=== PATIENT | male | born 1935 | race Hispanic/Latino ===

== ENCOUNTER 2017-02-24 18:31 | Emergency (ER) | payer MEDICARE ==
[2017-02-24 18:32] VITALS: BMI 33.9
[2017-02-24 18:53] VITALS: BP 161/92; PULSE 112; RESP 21; TEMP 99.2; O2SAT 92
--- NOTE | 2017-02-24 19:05 | ED PDOC ---
Arrival/HPI - General Chief Complaint: Male Genitourinary Time Seen by Provider: 02/24/17 18:32 Historian: Patient, Spouse - History of Present Illness Time/Duration: Prior to Arrival Symptom Onset: Gradual Symptom Course: Unchanged Severity Level: Moderate Associated Symptoms (Text): 02/24/17 19:02 Patient had a bronchoscopy 2 days ago. Post anesthesia, was unable to urinate. A Bhatia catheter was placed. He has an appointment with the urologist in 2 days. He states that the Bhatia catheter is not making urine this afternoon. He did empty the bag earlier today. He noticed some blood, but no clots. He is on Coumadin. No abdominal pain nausea or vomiting. No fever or chills. Past Medical History - Cardiac Hx Angina: Yes Hx Congestive Heart Failure: Yes Hx Hypertension: Yes - Pulmonary Hx Chronic Obstructive Pulmonary Disease (COPD): Yes - Neurological Hx Neurological Disorder: No - HEENT Other/Comment: HEARING AIDS - Renal Hx Renal Disorder: No - Endocrine/Metabolic Hx Endocrine Disorders: No - Hematological/Oncological Hx Blood Disorders: No Hx Blood Transfusions: No Hx Blood Transfusion Reaction: No - Integumentary Hx Dermatological Disorder: No - Musculoskeletal/Rheumatological Hx Arthritis: Yes - Gastrointestinal Hx Gastrointestinal Disorders: No - Genitourinary/Gynecological Other/Comment: URINARY RETENTION - Psychiatric Hx Psychophysiologic Disorder: No Hx Substance Use: No - Surgical History Other/Comment: LUNG BX - Anesthesia Hx Anesthesia Reactions: No Hx Malignant Hyperthermia: No Family/Social History - Physician Review Nursing Documentation Reviewed: Yes Family/Social History: Unknown Family HX Smoking Status: Former Smoker (Quit smoking 40 years ago) Hx Alcohol Use: No Hx Substance Use: No Allergies/Home Meds Allergies/Adverse Reactions: Allergies No Known Allergies Allergy (Verified 02/24/17 18:42) Home Medications: Home Meds Medication Instructions Recorded Confirmed Amlodipine Besylate 10 mg PO DAILY 01/27/13 02/24/17 Beclomethasone Dipropionate [Qvar] 80 mcg PO BID 01/27/13 02/24/17 Enalapril Maleate [Enalapril] 20 mg PO BID 01/27/13 02/24/17 Folic Acid 1 mg PO DAILY 01/27/13 02/24/17 Furosemide 40 mg PO DAILY 01/27/13 02/24/17 Levalbuterol Tartrate [Xopenex Hfa] 15 gra INH TID 01/27/13 02/24/17 Nebivolol Hydrochloride [Bystolic] 5 mg PO DAILY 01/27/13 02/24/17 Rosuvastatin Calcium [Crestor] 10 mg PO DAILY 01/27/13 02/24/17 Tiotropium [place] Inhaler 1 cap NEB DAILY 01/27/13 02/24/17 [Spiriva Inhalation Handihaler Device] Warfarin Sodium [Warfarin] 10 mg PO DAILY 01/27/13 02/24/17 Amiodarone Hydrochloride 200 mg PO DAILY 02/24/17 02/24/17 [Cordarone] Tamsulosin [Flomax] 1 cap PO DAILY 02/24/17 02/24/17 Review of Systems - Physician Review All systems were reviewed & negative as marked: Yes - Review of Systems Constitutional: Fatigue. absent: Fevers Respiratory: SOB (Chronic shortness of breath no different from usual) Cardiovascular: absent: Chest Pain, Palpitations, Syncope Gastrointestinal: absent: Abdominal Pain, Nausea, Vomiting Neurological: absent: Headache, Dizziness Physical Exam Vital Signs Temp Pulse Resp BP Pulse Ox 02/24/17 18:48 99.2 F 112 H 21 161/92 H 92 L Temperature: Afebrile Blood Pressure: Hypertensive Pulse: Tachycardic Respiratory Rate: Normal Appearance: Positive for: Well-Appearing, Non-Toxic, Comfortable, Other ( Chronically ill-appearing) Pain Distress: None Mental Status: Positive for: Alert and Oriented X 3 - Systems Exam Head: Present: Atraumatic, Normocephalic Neck: Present: Normal Range of Motion Respiratory/Chest: Present: Accessory Muscle Use, Wheezes, Decreased Breath Sounds, Rhonchi, Tachypneic. No: Rales, Retracting Cardiovascular: Present: Regular Rate and Rhythm, Normal S1, S2, Tachycardic. No: Murmurs Abdomen: Present: Normal Bowel Sounds, Other (Obese). No: Tenderness, Distention, Peritoneal Signs, Rebound, Guarding Genitourinary Male: Present: Normal External Genitalia, Circumcised Penis. No: Lesions, Penile Discharge Upper Extremity: Present: Normal Inspection. No: Cyanosis, Edema Lower Extremity: Present: Edema (Trace bilateral lower extremity edema) Neurological: Present: GCS=15, CN II-XII Intact, Speech Normal, Motor Func Grossly Intact Skin: Present: Warm, Dry, Normal Color. No: Rashes Psychiatric: Present: Alert, Oriented x 3, Normal Insight, Normal Concentration Medical Decision Making ED Course and Treatment: 02/24/17 20:10 BUN/creatinine are slightly elevated. Last BUN/creatinine are from 2010. 02/24/17 20:59 Bhatia catheter is draining well. reports that he has mild chronic renal failure. His INR is essentially normal, even though he is back on his Coumadin. He has an appointment with the urologist to have the Bhatia catheter removed in 2 days. Urine culture has been obtained. He will be treated for UTI and discharged home. Follow up in the ER as needed.. - Lab Interpretations Lab Results: 02/24/17 19:30 02/24/17 19:30 Lab Results 02/24/17 19:30: Sodium 134, Potassium 3.7, Chloride 99, Carbon Dioxide 26, Anion Gap 13, BUN 29 H, Creatinine 1.6 H, Est GFR ( Amer) 51, Est GFR ( Non-Af Amer) 42, Random Glucose 121 H, Calcium 9.3, Total Bilirubin 1.0, AST 26 , ALT 25, Alkaline Phosphatase 94, Total Protein 6.9, Albumin 3.9, Globulin 3.1 , Albumin/Globulin Ratio 1.3 02/24/17 19:30: PT 11.7, INR 1.08, APTT 33.7 H 02/24/17 19:30: WBC 11.9 H, RBC 4.11, Hgb 11.6 L, Hct 34.6 L, MCV 84.2, MCH 28.2 , MCHC 33.5, RDW 15.2 H, Plt Count 152, MPV 9.4, Gran % 81.1 H, Lymph % (Auto) 8.4 L, [place] % (Auto) 10.2 H, Eos % (Auto) 0.2 L, Baso % (Auto) 0.1, Gran # 9.62 H, Lymph # 1.0 L, [place] # 1.2 H, Eos # 0.0, Baso # 0.01 02/24/17 19:07: Urine Color Yellow, Urine Appearance Sl cloudy, Urine pH 6.0, Ur Specific [place] 1.020, Urine Protein 100 H, Urine Glucose (UA) Negative, Urine Ketones Negative, Urine Blood Large H, Urine Nitrate Negative, Urine Bilirubin Negative, Urine Urobilinogen 0.2, Ur Leukocyte Esterase Small H, Urine RBC Tntc, Urine WBC 2 - 5, Ur Epithelial Cells 3 - 4, Urine Bacteria Mod - Medication Orders Current Medication Orders: Discontinued Medications Ceftriaxone Sodium (Rocephin 1 Gram Ivpb) 1 gm in 100 mls @ 200 mls/hr IVPB STAT STA PRN Reason: Protocol Stop: 02/24/17 21:31 Last Admin: 02/24/17 21:08 Dose: 200 mls/hr Disposition/Present on Arrival - Present on Arrival Any Indicators Present on Arrival: No History of DVT/PE: No History of Uncontrolled Diabetes: No Urinary Catheter: No History of Decub. Ulcer: No History Surgical Site Infection Following: None - Disposition Have Diagnosis and Disposition been Completed?: Yes Diagnosis: Urinary retention, Urinary tract infection Disposition: HOME/ ROUTINE Disposition Time: 21:01 Patient Plan: Discharge Condition: IMPROVED Discharge Instructions (ExitCare): Urinary Retention in Men (ED), Urinary Tract Infection in Men (ED) Additional Instructions: Follow-up with PMD and neurologist. Follow up in ER as needed. Prescriptions: Sulfamethoxazole/Trimethoprim [Bactrim DS 800 mg-160 mg] 1 tab PO BID #14 tab
[2017-02-24 19:42] LABS: ADD MANUAL DIFF? NO
[2017-02-24 19:58] LABS: BASO # 0.01 K/mm3 (0.0-2.0); BASO % 0.1 % (0.0-3.0); EOS % 0.2 % (1.5-5.0); GRAN # 9.62 (1.4-6.5); GRAN % 81.1 % (50.0-68.0); HEMATOCRIT 34.6 % (42.0-52.0); LYMPH % 8.4 % (22.0-35.0); MEAN CELL VOLUME 84.2 fL (80.0-105.0); MEAN CORPUSCULAR HEMOGLOBIN 28.2 pg (25.0-35.0); MEAN CORPUSCULAR HGB CONC 33.5 g/dl (31.0-37.0); MEAN PLATELET VOLUME 9.4 fl (7.0-11.0); MONO # 1.2 (0.1-0.6); MONO % 10.2 % (1.0-6.0); PLATELET COUNT 152 10^3/uL (120.0-450.0); RED CELL DISTRIBUTION WIDTH 15.2 % (11.5-14.5); WHITE BLOOD COUNT 11.9 10^3/ul (4.5-11.0)
[2017-02-24 20:03] LABS: ALB/GLOB RATIO 1.3 (1.1-1.8); CALCIUM 9.3 mg/dL (8.4-10.5); POTASSIUM 3.7 mmol/L (3.6-5.0); TOTAL PROTEIN 6.9 g/dL (5.8-8.3)
[2017-02-24 20:04] LABS: INR 1.08 (0.93-1.08); PARTIAL THROMBOPLASTIN TIME 33.7 Seconds (23.7-30.8)
[2017-02-24 20:10] LABS: URINE BILIRUBIN NEGATIVE (NEGATIVE); URINE BLOOD LARGE (NEGATIVE); URINE GLUCOSE (UA) NEGATIVE (NEGATIVE); URINE KETONE NEGATIVE (NEGATIVE); URINE LEUKOCYTE ESTERASE SMALL Leu/uL (NEGATIVE); URINE PROTEIN 100 mg/dL (<30 mg/dL); URINE UROBILINOGEN 0.2 E.U./dL (<1 E.U./dL)
[2017-02-24 20:46] LABS: URINE APPEARANCE SL CLOUDY (CLEAR); URINE COLOR YELLOW (YELLOW)
[2017-02-24 20:47] LABS: URINE BACTERIA MOD (NEG); URINE RBC TNTC /hpf (0-2)
[2017-02-24] MEDS ORDERED: cefTRIAXone 1 gm 1 GM/100 ML BAG IVPB STA (21:02)
== END 2017-02-24 21:35 | disposition home or self-care (01) ==
LOC: ED 18:31
DX: R33.9 Retention of urine, unspecified (principal); N39.0 Urinary tract infection, site not specified; Z87.891 Personal history of nicotine dependence; I10 Essential (primary) hypertension; Z79.01 Long term (current) use of anticoagulants
CPT/HCPCS: 80053; 81001; 85025; 85610; 85730; 87086; 96365; 99284; J0696

== ENCOUNTER 2018-10-17 08:12 | Emergency (ER) | payer MEDICARE ==
[2018-10-17 08:23] VITALS: BMI 39.4
[2018-10-17 08:27] VITALS: TEMP 98.4
[2018-10-17 08:48] LABS: BASO # 0.01 K/mm3 (0.0-2.0); BASO % 0.1 % (0.0-3.0); EOS # 0.1 (0.0-0.7); EOS % 0.5 % (1.5-5.0); HEMOGLOBIN 12.4 g/dL (14.0-18.0); LYMPH % 8.4 % (22.0-35.0); MEAN CELL VOLUME 85.7 fl (80.0-105.0); MEAN CORPUSCULAR HEMOGLOBIN 28.1 pg (25.0-35.0); MEAN CORPUSCULAR HGB CONC 32.7 g/dl (31.0-37.0); MEAN PLATELET VOLUME 9.3 fl (7.0-11.0); MONO # 0.8 (0.1-0.6); MONO % 6.7 % (1.0-6.0); RBC 4.42 10^6/uL (3.5-6.1); RED CELL DISTRIBUTION WIDTH 14.7 % (11.5-14.5); WHITE BLOOD COUNT 12.2 10^3/uL (4.5-11.0)
--- NOTE | 2018-10-17 08:53 | ED PDOC ---
Arrival/HPI - General Chief Complaint: Trauma Historian: Patient, Spouse - History of Present Illness Narrative History of Present Illness (Text): 10/17/18 08:50 83 year old male, whose past medical history includes angina, A-fib, CHF, hypertension, COPD, pre-diabetes, and arthritis, who presents to the emergency department complaining of laceration to the back of the head and right elbow s/p fall earlier today. Patient says he has a chronic problem with his wrist and he is often unable to hold on to anything. Today he reports when he was walking down the stairs, he was unable to hold on to the railing, fell, and hit the back of his head. He notes associated laceration to the back of his head and to his right elbow. Patient states he walks with a cane at baseline and experiences chronic leg swelling. He denies loss of consciousness, dizziness, and lightheadedness before the fall. He also denies fevers, chills, headache, dizziness, chest pain, shortness of breath, dyspnea on exertion, cough, abdominal pain, nausea, vomiting, diarrhea, back pain, neck pain, or any other complaint. PMD: Dr. Hughes Biomedical Instrument Technician: Dr. Sloan Time/Duration: Prior to Arrival Symptom Course: Unchanged Activities at Onset: Light Context: Home Past Medical History - Provider Review Nursing Documentation Reviewed: Yes - Cardiac Hx Angina: Yes Hx Atrial Fibrillation: Yes Hx Congestive Heart Failure: Yes Hx Hypertension: Yes - Pulmonary Hx Chronic Obstructive Pulmonary Disease (COPD): Yes - Neurological Hx Neurological Disorder: No - HEENT Hx HEENT Disorder: Yes Hx Deafness: Yes Other/Comment: HEARING AIDS - Renal Hx Renal Disorder: No - Endocrine/Metabolic Hx Endocrine Disorders: Yes Hx Diabetes Mellitus Type 2: (prediabetic) - Hematological/Oncological Hx Blood Disorders: No Hx Blood Transfusions: No Hx Blood Transfusion Reaction: No - Integumentary Hx Dermatological Disorder: No - Musculoskeletal/Rheumatological Hx Arthritis: Yes - Gastrointestinal Hx Gastrointestinal Disorders: No - Genitourinary/Gynecological Other/Comment: URINARY RETENTION - Psychiatric Hx Psychophysiologic Disorder: No Hx Substance Use: No - Surgical History Hx Tonsillectomy: Yes Other/Comment: LUNG BX - Anesthesia Hx Anesthesia Reactions: No Hx Malignant Hyperthermia: No Family/Social History - Physician Review Nursing Documentation Reviewed: Yes Family/Social History: No Known Family HX Smoking Status: Former Smoker Hx Alcohol Use: No Hx Substance Use: No Allergies/Home Meds Allergies/Adverse Reactions: Allergies No Known Allergies Allergy (Verified 10/17/18 08:27) Home Medications: Home Meds Medication Instructions Recorded Confirmed Rosuvastatin Calcium [Crestor] 10 mg PO DAILY 01/27/13 10/17/18 Tiotropium [place] Inhaler 1 cap NEB DAILY 01/27/13 10/17/18 [Spiriva Inhalation Handihaler Device] Tamsulosin [Flomax] 1 cap PO DAILY 02/24/17 10/17/18 Beclomethasone Dipropionate [Qvar 0.08 mg IH BID 10/17/18 10/17/18 80 mcg] Folic Acid 1 mg PO DAILY 10/17/18 10/17/18 Furosemide [Lasix] 40 mg PO DAILY 10/17/18 10/17/18 Levalbuterol Tartrate [Xopenex Hfa] 2 puff IH QID 10/17/18 10/17/18 Nebivolol [Bystolic] 5 mg PO BID 10/17/18 10/17/18 Roflumilast [Daliresp] 250 mcg PO DAILY 10/17/18 10/17/18 Warfarin [Coumadin] 5 mg PO BID 10/17/18 10/17/18 amLODIPine [Norvasc] 10 mg PO DAILY 10/17/18 10/17/18 Review of Systems - Physician Review All systems were reviewed & negative as marked: Yes - Review of Systems Constitutional: absent: Fevers Eyes: absent: Vision Changes Respiratory: absent: SOB, Cough Cardiovascular: Edema (bilateral leg swelling). absent: Chest Pain Gastrointestinal: absent: Abdominal Pain, Nausea, Vomiting Genitourinary Male: absent: Dysuria, Frequency Musculoskeletal: absent: Back Pain, Neck Pain Skin: Laceration (to occiput and right elbow) Neurological: absent: Headache, Dizziness Physical Exam Vital Signs Reviewed: Yes Vital Signs Temp Pulse Resp BP Pulse Ox 10/17/18 08:22 98.4 F 107 H 18 158/101 H 92 L Temperature: Afebrile Blood Pressure: Hypertensive Pulse: Tachycardic Respiratory Rate: Normal Appearance: Positive for: Well-Appearing, Non-Toxic, Comfortable, Other (obese man) Pain Distress: None Mental Status: Positive for: Alert and Oriented X 3 - Systems Exam Head: Present: Atraumatic, Normocephalic, Laceration (linear laceration on the occiput) Pupils: Present: PERRL Extroacular Muscles: Present: EOMI Conjunctiva: Present: Normal Mouth: Present: Moist Mucous Membranes. No: Normal Teeth (poor dentition) Neck: Present: Normal Range of Motion Respiratory/Chest: Present: Clear to Auscultation, Decreased Breath Sounds (due to body habitus). No: Respiratory Distress, Accessory Muscle Use Cardiovascular: Present: Normal S1, S2, Irregular Rhythm (irregulary irrregular rhythm). No: Regular Rate and Rhythm, Murmurs Abdomen: Present: Distention, Other (abdomen soft). No: Tenderness, Peritoneal Signs Back: Present: Normal Inspection Upper Extremity: Present: Normal Inspection. No: Cyanosis, Edema Lower Extremity: Present: Edema (+1 pitting edema bilaterally) Neurological: Present: GCS=15, CN II-XII Intact, Speech Normal Skin: Present: Warm, Dry, Normal Color, Abrasion (abrasion noted towards right upper extremity that extends from the elbow to the mid forearm with ecchymosis present). No: Rashes Psychiatric: Present: Alert, Oriented x 3, Normal Insight, Normal Concentration Medical Decision Making ED Course and Treatment: 10/17/18 08:49 Impression: 83 year old male who presents to the emergency department complaining of laceration to head and right arm. Differential Diagnosis included but are not limited to: Brain Bleed TIA Plan: -- CT of Cervical Spine w/o contrast -- CT of Head w/o contrast -- Labs -- EKG -- Chest X-ray -- Right Forearm X-ray -- Reassess and disposition Prior Visits: Notes and results from previous visits were reviewed. Progress Notes: - Lab Interpretations I have reviewed the lab results: Yes - RAD Interpretation Narrative RAD Interpretations (Text): 10/17/18 09:57 CT of cervical Spine reviewed by radiologist, shows: IMPRESSION: No acute fracture. Grade 1 anterolisthesis L3-4, likely degenerative. Straightening may indicate muscular spasm. Head CT reviewed by radiologist, shows: IMPRESSION: No intracranial mass, hemorrhage or evidence of acute infarct. Age related atrophy and chronic white matter ischemic change. 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 Follow-up advised Right Forearm X-ray reviewed by radiologist, shows: IMPRESSION: No acute fracture. Radiology Orders: 10/17/18 08:27 CERVICAL SPINE W/O CONTRAST [CT] Stat 10/17/18 08:28 HEAD W/O CONTRAST [CT] Stat CHEST PORTABLE [RAD] Stat 10/17/18 08:46 FOREARM RIGHT [RAD] Stat Customer Complaint Service Supervisor: Radiologist - EKG Interpretation EKG Interpretation (Text): 10/17/18 09:19 EKG reviewed by me, shows: Irregularly irregular at 105 with RVR, intermittent PVCs, and normal QT intervals. Interpreted by ED Physician: Yes Type: 12 lead EKG - Scribe Statement The provider has reviewed the documentation as recorded by the Scribe Viki Clark Provider Scribe Attestation: All medical record entries made by the Scribe were at my direction and personally dictated by me. I have reviewed the chart and agree that the record accurately reflects my personal performance of the history, physical exam, medical decision making, and the department course for this patient. I have also personally directed, reviewed, and agree with the discharge instructions and disposition. Disposition/Present on Arrival - Present on Arrival Any Indicators Present on Arrival: No History of DVT/PE: No History of Uncontrolled Diabetes: No Urinary Catheter: No History of Decub. Ulcer: No History Surgical Site Infection Following: None - Disposition Have Diagnosis and Disposition been Completed?: Yes Diagnosis: Fall, Forearm contusion, Scalp abrasion Disposition: HOME/ ROUTINE Disposition Time: 10:30 Patient Plan: Discharge Patient Problems: Current Active Problems Problem Status Onset Fall Acute Forearm contusion Acute Scalp abrasion Acute Condition: STABLE Discharge Instructions (ExitCare): Preventing Falls in the Older Adult, Contusion (DC), Preventing Falls, Skin Abrasions (DC) Print Language: DUTCH Additional Instructions: All medical record entries made by the Scribe were at my direction and personally dictated by me. I have reviewed the chart and agree that the record accurately reflects my personal performance of the history, physical exam, medical decision making, and the department course for this patient. I have also personally directed, reviewed, and agree with the discharge instructions and disposition. Please follow up with Dr. Choudhary in 2-3 days Please use ice packs every hour for 15 minutes on the hand. Please return to the Emergency Room if you see any blood, redness, warmth or rash form on your hand. Referrals: Vladimir Hughes MD [Primary Care Provider] - Follow up with primary Forms: [employer] (Niuean)
[2018-10-17 08:57] LABS: ALB/GLOB RATIO 1.1 (1.1-1.8); ALBUMIN 3.9 g/dL (3.0-4.8); ALT/SGPT 24 U/L (7-56); AST/SGOT 21 U/L (17-59); BLOOD UREA NITROGEN 31 mg/dL (7-21); CALCIUM 9.5 mg/dL (8.4-10.5); GFR NON-AFRICAN AMERICAN 49; INR 3.11; PARTIAL THROMBOPLASTIN TIME 53.7 Seconds (26.9-38.3); PROTHROMBIN TIME 35.1 SECONDS (9.4-12.5)
[2018-10-17 09:08] LABS: TROPONIN I < 0.01 ng/mL
--- NOTE | 2018-10-17 09:34 | CT ---
Date of service: 10/17/2018 PROCEDURE: CT HEAD WITHOUT CONTRAST. HISTORY: fall COMPARISON: None available. TECHNIQUE: Axial computed tomography images were obtained through the head/brain without intravenous contrast. Radiation dose: Total exam DLP = 856.13 mGy-cm. This CT exam was performed using one or more of the following dose reduction techniques: Automated exposure control, adjustment of the mA and/or kV according to patient size, and/or use of iterative reconstruction technique. FINDINGS: HEMORRHAGE: No intracranial hemorrhage BRAIN: No mass effect or edema. Mild diffuse age-appropriate cerebral atrophy. Moderate patchy and confluent periventricular and deep/subcortical white matter lucency consistent with microvascular white matter ischemic change. 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 No evidence of acute infarct. VENTRICLES: Unremarkable. No hydrocephalus. CALVARIUM: Unremarkable. PARANASAL SINUSES: Unremarkable as visualized. No significant inflammatory changes. MASTOID AIR CELLS: Unremarkable as visualized. No inflammatory changes. OTHER FINDINGS: None. IMPRESSION: No intracranial mass, hemorrhage or evidence of acute infarct. Age related atrophy and chronic white matter ischemic change. 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
--- NOTE | 2018-10-17 09:50 | CT ---
Date of service: 10/17/2018 PROCEDURE: CT Cervical Spine without contrast HISTORY: fall COMPARISON: None available. TECHNIQUE: Axial computed tomography images were obtained of the cervical spine without the use of intravenous contrast. Coronal and sagittal reformatted images were created and reviewed. Radiation dose: Total exam DLP = 902.68 mGy-cm. This CT exam was performed using one or more of the following dose reduction techniques: Automated exposure control, adjustment of the mA and/or kV according to patient size, and/or use of iterative reconstruction technique. FINDINGS: VERTEBRAE: The vertebral bodies are maintained in height. There is grade 1 anterolisthesis at C3-4, likely degenerative in origin. Normal alignment is maintained elsewhere. There is straightening of the normal lordotic curvature of the cervical spine indicating possible muscular spasm. The atlantoaxial articulation and odontoid process are intact. DISCS/SPINAL CANAL/NEURAL FORAMINA: There is loss in height of the C4-5, C5-6 and C6-7 intervertebral disc spaces consistent with degenerative disc disease. No significant central cervical spinal stenosis. There is [id number] unilateral right C4-5 and bilateral C5-6 neural foraminal stenosis PARASPINAL SOFT TISSUES: Unremarkable. OTHER FINDINGS: None. IMPRESSION: No acute fracture. Grade 1 anterolisthesis L3-4, likely degenerative. Straightening may indicate muscular spasm.
[2018-10-17 10:28] VITALS: O2SAT 97
--- NOTE | 2018-10-17 11:14 | RAD ---
PROCEDURE: Radiographs of the Right Forearm HISTORY: fall COMPARISON: None available. TECHNIQUE: Frontal and lateral views obtained. FINDINGS: BONES: No fracture or destructive lesion. JOINT SPACES: Unremarkable. OTHER FINDINGS: Vascular calcification noted in soft tissues. IMPRESSION: No acute fracture.
--- NOTE | 2018-10-17 11:16 | RAD ---
Date of service: 10/17/2018 HISTORY: fall COMPARISON: No prior. FINDINGS: LUNGS: Patchy opacity at left base silhouetting left hemidiaphragm. This may reflect a pneumonia. Follow-up advised no other abnormal pulmonary opacity elsewhere. PLEURA: No significant pleural effusion identified, no pneumothorax apparent. CARDIOVASCULAR: No aortic atherosclerotic calcification present. Normal cardiac size. No pulmonary vascular congestion. OSSEOUS STRUCTURES: No significant abnormalities. VISUALIZED UPPER ABDOMEN: Normal. OTHER FINDINGS: None. IMPRESSION: Possible left basilar infiltrate. Follow-up advised
[2018-10-17 12:19] VITALS: BP 144/88; PULSE 92; RESP 20
--- NOTE | 2018-10-17 16:26 | CARD ---
APPROVED REPORT Date of service: 10/17/2018 EKG Measurement Heart [id number] <Conclusion> Atrial fibrillation with rapid ventricular response with premature ventricular or aberrantly conducted complexes Nonspecific ST and T wave abnormality, probably digitalis effect Abnormal ECG
== END 2018-10-17 11:50 | disposition home or self-care (01) ==
LOC: ED 08:12
DX: S00.01XA Abrasion of scalp, initial encounter (principal); S50.11XA Contusion of right forearm, initial encounter; W19.XXXA Unspecified fall, initial encounter; R73.03 Prediabetes; I48.91 Unspecified atrial fibrillation; I50.9 Heart failure, unspecified; I10 Essential (primary) hypertension; J44.9 Chronic obstructive pulmonary disease, unspecified; Z87.891 Personal history of nicotine dependence; M19.90 Unspecified osteoarthritis, unspecified site

== ENCOUNTER 2018-12-09 10:28 | Inpatient (IN) | payer MEDICARE ==
[2018-12-09 10:39] VITALS: BMI 39.3
--- NOTE | 2018-12-09 10:48 | ED PDOC ---
Arrival/HPI - General Time Seen by Provider: 12/09/18 10:30 Historian: Patient - History of Present Illness Narrative History of Present Illness (Text): 12/09/18 11:27 83 y/o male with PMH of afib, CAD, COPD, DM, CHF, HTN presents to the ED c/o left hand/wrist swelling and erythema x 3 weeks. Pt is seen weekly by a visiting nurse associated with Dr. Hughes. Pt has similar redness and swelling to left elbow and left hand, that resolved without antibiotic treatment. Pt was advised to go to the ED if symptoms persisted in the left hand. Associated intermittent SOB, loss of appetite, and lightheadedness over the last few months. Denies fever, chills, chest pain, back pain, headache, vision changes, nausea, vomiting, diarrhea, or any other associated symptoms. Past Medical History - Cardiac Hx Angina: Yes Hx Atrial Fibrillation: Yes Hx Congestive Heart Failure: Yes Hx Hypertension: Yes - Pulmonary Hx Chronic Obstructive Pulmonary Disease (COPD): Yes - Neurological Hx Neurological Disorder: No - HEENT Hx HEENT Disorder: Yes Hx Deafness: Yes Other/Comment: HEARING AIDS - Renal Hx Renal Disorder: No - Endocrine/Metabolic Hx Endocrine Disorders: Yes Hx Diabetes Mellitus Type 2: (prediabetic) - Hematological/Oncological Hx Blood Disorders: No Hx Blood Transfusions: No Hx Blood Transfusion Reaction: No - Integumentary Hx Dermatological Disorder: No - Musculoskeletal/Rheumatological Hx Arthritis: Yes - Gastrointestinal Hx Gastrointestinal Disorders: No - Genitourinary/Gynecological Other/Comment: URINARY RETENTION - Psychiatric Hx Psychophysiologic Disorder: No Hx Substance Use: No - Surgical History Hx Tonsillectomy: Yes Other/Comment: LUNG BX - Anesthesia Hx Anesthesia Reactions: No Hx Malignant Hyperthermia: No Family/Social History Smoking Status: Former Smoker Hx Alcohol Use: No Hx Substance Use: No Allergies/Home Meds Allergies/Adverse Reactions: Allergies No Known Allergies Allergy (Verified 12/09/18 11:12) Home Medications: Home Meds Medication Instructions Recorded Confirmed Rosuvastatin Calcium [Crestor] 10 mg PO DAILY 01/27/13 12/09/18 Tiotropium [place] Inhaler 1 cap NEB DAILY 01/27/13 12/09/18 [Spiriva Inhalation Handihaler Device] Tamsulosin [Flomax] 1 cap PO DAILY 02/24/17 12/09/18 Beclomethasone Dipropionate [Qvar 0.08 mg IH BID 10/17/18 12/09/18 80 mcg] Folic Acid 1 mg PO DAILY 10/17/18 12/09/18 Furosemide [Lasix] 40 mg PO DAILY 10/17/18 12/09/18 Levalbuterol Tartrate [Xopenex Hfa] 2 puff IH QID 10/17/18 12/09/18 Nebivolol [Bystolic] 10 mg PO DAILY 10/17/18 12/09/18 Roflumilast [Daliresp] 250 mcg PO DAILY 10/17/18 12/09/18 Warfarin [Coumadin] 5 mg PO DAILY 10/17/18 12/09/18 Cyanocobalamin (Vitamin B-12) 1,000 mcg PO DAILY 12/09/18 12/09/18 [Vitamin B-12] Physical Exam Vital Signs Reviewed: Yes Temperature: Afebrile Blood Pressure: Hypertensive Pulse: Regular Respiratory Rate: Normal Appearance: Positive for: Well-Appearing, Non-Toxic, Comfortable Pain Distress: None Mental Status: Positive for: Alert and Oriented X 3 - Systems Exam Head: Present: Atraumatic, Normocephalic Pupils: Present: PERRL Extroacular Muscles: Present: EOMI Conjunctiva: Present: Normal Mouth: Present: Moist Mucous Membranes Neck: Present: Normal Range of Motion Respiratory/Chest: Present: Clear to Auscultation, Good Air Exchange. No: Respiratory Distress, Accessory Muscle Use Cardiovascular: Present: Regular Rate and Rhythm, Normal S1, S2. No: Murmurs Abdomen: No: Tenderness, Distention, Peritoneal Signs Back: Present: Normal Inspection. No: CVA Tenderness, Paraspinal Tenderness Upper Extremity: Present: Normal ROM, NORMAL PULSES, Tenderness (dorsum of left hand and wrist), Swelling (dorsum left hand), Neurovascularly Intact, Temperature Abnormalties (warmth to dorsum of left hand and wrist), Capillary Refill < 2s. No: Normal Inspection, Cyanosis, Edema Lower Extremity: Present: Normal Inspection. No: Edema Neurological: Present: GCS=15, CN II-XII Intact, Speech Normal Skin: Present: Warm, Dry, Normal Color. No: Rashes Psychiatric: Present: Alert, Oriented x 3, Normal Insight, Normal Concentration Medical Decision Making ED Course and Treatment: 12/09/18 11:26 Initial Plan: * CBC, CMP * Coags * ESR * EKG * CXR * Left Wrist XR 12/09/18 12:27 INR 8.8. No active bleeding, will continue to monitor. BNP elevated, will give home lasix dose. ESR elevated at 90 12/09/18 12:[address] Barajas who accepted patient for inpatient admission with diagnoses of cellulitis, elevated INR, and CHF. Pt updated with change in disposition. Resting comfortably in stretcher with stable vital signs at this time. - Lab Interpretations Lab Results: 12/09/18 11:30 12/09/18 11:30 Lab Results 12/09/18 11:30: PT 99.5 H, INR 8.81 H*, APTT 88.8 H 12/09/18 11:30: Sodium 142, Potassium 3.7, Chloride 109 H, Carbon Dioxide 25, Anion Gap 12, BUN 15, Creatinine 0.9, Est GFR ( Amer) > 60, Est GFR (Non- Af Amer) > 60, Random Glucose 114 H, Calcium 9.0, Total Bilirubin 0.6, AST 19, ALT 11, Alkaline Phosphatase 101, Troponin I Pending, NT-Pro-B Natriuret Pep 4930 H, Total Protein 6.5, Albumin 3.1, Globulin 3.3, Albumin/Globulin Ratio 0.9 L 12/09/18 11:30: WBC 9.3 D, RBC 4.09, Hgb 10.8 L, Hct 34.3 L, MCV 83.9, MCH 26.4, MCHC 31.5, RDW 16.7 H, Plt Count 271, MPV 9.3, Neut % (Auto) 85.5 H, Lymph % (Auto) 7.2 L, [place] % (Auto) 6.5 H, Eos % (Auto) 0.8 L, Baso % (Auto) 0.0, Lymph # (Auto) 0.7 L, [place] # (Auto) 0.6, Eos # (Auto) 0.1, Baso # (Auto) 0.00, Absolute Neuts (auto) 7.98 H, ESR Pending I have reviewed the lab results: Yes - RAD Interpretation Narrative RAD Interpretations (Text): 12/09/18 12:27 CXR: FINDINGS: LUNGS: No active pulmonary disease. PLEURA: Small left effusion CARDIOVASCULAR: No aortic atherosclerotic calcification present. Moderate cardiomegaly no pulmonary vascular congestion. OSSEOUS STRUCTURES: No significant abnormalities. VISUALIZED UPPER ABDOMEN: Normal. OTHER FINDINGS: None. IMPRESSION: No active disease. Small left effusion Left Wrist XR: FINDINGS: BONES: Normal. No fracture. JOINTS: Normal. No dislocation. SOFT TISSUES: Normal. OTHER FINDINGS: Vascular calcification IMPRESSION: Normal left wrist radiographs. 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
[2018-12-09 11:39] LABS: EOS # 0.1 (0.0-0.7); EOS % 0.8 % (1.5-5.0); HEMOGLOBIN 10.8 g/dL (14.0-18.0); LYMPH # 0.7 (1.2-3.4); LYMPH % 7.2 % (22.0-35.0); MEAN CELL VOLUME 83.9 fl (80.0-105.0); MEAN CORPUSCULAR HEMOGLOBIN 26.4 pg (25.0-35.0); MEAN CORPUSCULAR HGB CONC 31.5 g/dl (31.0-37.0); MEAN PLATELET VOLUME 9.3 fl (7.0-11.0); MONO # 0.6 (0.1-0.6); MONO % 6.5 % (1.0-6.0); RBC 4.09 10^6/uL (3.5-6.1); RED CELL DISTRIBUTION WIDTH 16.7 % (11.5-14.5); WHITE BLOOD COUNT 9.3 10^3/uL (4.5-11.0)
[2018-12-09 11:51] LABS: PARTIAL THROMBOPLASTIN TIME 88.8 Seconds (26.9-38.3)
[2018-12-09 12:14] LABS: ALB/GLOB RATIO 0.9 (1.1-1.8); ALBUMIN 3.1 g/dL (3.0-4.8); ALT/SGPT 11 U/L (7-56); AST/SGOT 19 U/L (17-59); B-TYPE NATRIURETIC PEPTIDE 4930 pg/mL (0-450); BLOOD UREA NITROGEN 15 mg/dL (7-21); GFR NON-AFRICAN AMERICAN > 60
[2018-12-09 12:17] LABS: INR 8.81; PROTHROMBIN TIME 99.5 SECONDS (9.4-12.5)
--- NOTE | 2018-12-09 12:26 | RAD ---
Date of service: 12/09/2018 HISTORY: sob COMPARISON: 10/17/2018 TECHNIQUE: 1 view obtained. FINDINGS: LUNGS: No active pulmonary disease. PLEURA: Small left effusion CARDIOVASCULAR: No aortic atherosclerotic calcification present. Moderate cardiomegaly no pulmonary vascular congestion. OSSEOUS STRUCTURES: No significant abnormalities. VISUALIZED UPPER ABDOMEN: Normal. OTHER FINDINGS: None. IMPRESSION: No active disease. Small left effusion
--- NOTE | 2018-12-09 12:28 | RAD ---
Date of service: 12/09/2018 PROCEDURE: Left Wrist Radiographs. HISTORY: cellulitis, swelling COMPARISON: None. FINDINGS: BONES: Normal. No fracture. JOINTS: Normal. No dislocation. SOFT TISSUES: Normal. OTHER FINDINGS: Vascular calcification IMPRESSION: Normal left wrist radiographs.
[2018-12-09] MEDS ORDERED: Vancomycin 1gm in NS 250ml 1 GM/250 ML BAG IVPB STA (12:53)
[2018-12-09 12:59] LABS: TROPONIN I 0.01 ng/mL
--- NOTE | 2018-12-09 13:45 | CP.PCM.HP ---
<Osmani Escobedo - Last Filed: 12/09/18 14:58> History of Present Illness - History of Present Illness History of Present Illness: Osmani Escobedo, PGY1 Hospital H&P This is an 83 year old male with PMH of afib on coumadin, CHF, pre-DM, COPD not on home O2, CAD and HTN presenting to the hospital for 3 week history of left hand swelling, redness, tenderness and warmth. Patient states he has similar intermittent symptoms in both wrists that extend into the arm but the left wrist complaints have worsened throughout the week. He has a home health nurse who works with Dr. Cortez that recommended hot and cold compresses with limited improvement in symptoms. He states symptoms worsen with use of walker and with use of rails when climbing up stairs. He denies any recent change in medication and has been on a stable dose of warfarin for years and denies recent change in diet. He denies history of gout, recent trauma, fevers, chest pain, new SOB, melanic stools, abdominal pain, diarrhea, constipation, urinary symptoms, numbness, tingling and chills. 12 point ROS noted here, otherwise unremarkable. PMD: Dr. Gaona Applications Instructor: Dr. Sloan PMH:afib on coumadin, CHF, pre-DM, COPD not on home O2, CAD and HTN SH: former smoker, quit 40 years with 30 pack year history. Quit drinking alcohol 25 years ago, denies drug use Sx: tonsillectomy many years ago FH: father had bladder cancer All: NKDA Meds: warfarin 5mg 5 days a week and 2.5mg two days a week, vitamin B12 and D, folic acid, lasix 40mg, crestor 10mg, flomax 0.4mg, bystolic 10mg, spiriva, duonebs, qvar Present on Admission - Present on Admission Any Indicators Present on Admission: No Past Patient History - Past Social History Smoking Status: Former Smoker - CARDIAC Hx Angina: Yes Hx Atrial Fibrillation: Yes Hx Congestive Heart Failure: Yes Hx Hypertension: Yes - PULMONARY Hx Chronic Obstructive Pulmonary Disease (COPD): Yes - NEUROLOGICAL Hx Neurological Disorder: No - HEENT Hx HEENT Problems: Yes Hx Deafness: Yes Other/Comment: HEARING AIDS - RENAL Hx Chronic Kidney Disease: No - ENDOCRINE/METABOLIC Hx Endocrine Disorders: Yes Hx Diabetes Mellitus Type 2: (prediabetic) - HEMATOLOGICAL/ONCOLOGICAL Hx Blood Disorders: No Hx Blood Transfusions: No Hx Blood Transfusion Reaction: No - INTEGUMENTARY Hx Dermatological Problems: No - MUSCULOSKELETAL/RHEUMATOLOGICAL Hx Arthritis: Yes - GASTROINTESTINAL Hx Gastrointestinal Disorders: No - GENITOURINARY/GYNECOLOGICAL Other/Comment: URINARY RETENTION - PSYCHIATRIC Hx Psychophysiologic Disorder: No Hx Substance Use: No - SURGICAL HISTORY Hx Tonsillectomy: Yes Other/Comment: LUNG BX - ANESTHESIA Hx Anesthesia Reactions: No Hx Malignant Hyperthermia: No Meds Allergies/Adverse Reactions: Allergies Allergy/AdvReac Type Severity Reaction Status Date / Time No Known Allergies Allergy Verified 12/09/18 11:12 Physical Exam - Constitutional Appears: No Acute Distress - Head Exam Head Exam: ATRAUMATIC, NORMAL INSPECTION - Eye Exam Eye Exam: EOMI Pupil Exam: PERRL - ENT Exam ENT Exam: Mucous Membranes Moist - Neck Exam Neck exam: Positive for: Normal Inspection - Respiratory Exam Respiratory Exam: Clear to Auscultation Bilateral. absent: Accessory Muscle Use, Wheezes, Respiratory Distress - Cardiovascular Exam Cardiovascular Exam: Irregular Rhythm, +S1, +S2. absent: Tachycardia - GI/Abdominal Exam GI & Abdominal Exam: Normal Bowel Sounds, Soft. absent: Firm, Guarding, Tenderness - Extremities Exam Extremities exam: Positive for: pedal pulses present. Negative for: calf tenderness Additional comments: LUE > RUE swelling, erythema, tenderness, warmth appreciation. No fluctuance/drainage/sharp demarcation appreciated LLE dry eczematic changes noted with swelling +2 LLE and +1 RLE. - Neurological Exam Neurological exam: Alert, CN II-XII Intact, Oriented x3 - Skin Skin Exam: Dry, Normal Color Results - Vital Signs Recent Vital Signs: Last Vital Signs Temp 97.8 F 12/09/18 10:29 Pulse 78 12/09/18 10:29 Resp 20 12/09/18 10:29 BP 164/80 H 12/09/18 12:40 Pulse Ox 92 L 12/09/18 10:29 - Labs Result Diagrams: 12/09/18 11:30 12/09/18 11:30 Labs: Laboratory Results - last 24 hr 12/09/18 12/09/18 12/09/18 11:30 11:30 11:30 WBC 9.3 D RBC 4.09 Hgb 10.8 L Hct 34.3 L MCV 83.9 MCH 26.4 MCHC 31.5 RDW 16.7 H Plt Count 271 MPV 9.3 Neut % (Auto) 85.5 H Lymph % (Auto) 7.2 L [place] % (Auto) 6.5 H Eos % (Auto) 0.8 L Baso % (Auto) 0.0 Lymph # (Auto) 0.7 L [place] # (Auto) 0.6 Eos # (Auto) 0.1 Baso # (Auto) 0.00 Absolute Neuts (auto) 7.98 H ESR 90 H PT 99.5 H INR 8.81 H* APTT 88.8 H Sodium 142 Potassium 3.7 Chloride 109 H Carbon Dioxide 25 Anion Gap 12 BUN 15 Creatinine 0.9 Est GFR ( Amer) > 60 Est GFR (Non-Af Amer) > 60 Random Glucose 114 H Calcium 9.0 Total Bilirubin 0.6 AST 19 ALT 11 Alkaline Phosphatase 101 Troponin I 0.01 NT-Pro-B Natriuret Pep 4930 H Total Protein 6.5 Albumin 3.1 Globulin 3.3 Albumin/Globulin Ratio 0.9 L Assessment & Plan - Assessment and Plan (Free Text) Assessment: This is an 83 year old male with PMH of afib on coumadin, CHF, pre-DM, COPD not on home O2, CAD and HTN presenting to the hospital for 3 week history of left hand swelling, redness, tenderness and warmth. Plan: LUE swelling -consider cellulitis vs trauma vs clot -upper and lower extremity doppler's pending -given one dose vancomycin in ED -ID on consult, Dr. Han -afebrile, no WBC -blood culture pending -PT eval -left hand xray unremarkable Supratherapeutic INR -holding warfarin -will give one dose of vitamin K -monitor INR History of afib -holding warfarin History of CHF -no echo on file -BNP elevated on admission -CXR shows no active disease -continue lasix 40mg History of COPD -not in active SOB, symptoms controlled -duonebs, pulmicort, brovana Pre-DM -monitor glucose, not currently on medication History of CAD -continue statin History of HTN -continue bystolic PPX -DVT ppx not indicated due supratherapeutic INR Patient seen and case discussed with attending, Shasta Arreola. <Christine Segura R - Last Filed: 12/10/18 08:03> Results - Vital Signs Recent Vital Signs: Last Vital Signs Temp 98.6 F 12/10/18 00:00 Pulse 85 12/10/18 06:00 Resp 18 12/10/18 00:00 BP 156/68 H 12/10/18 00:00 Pulse Ox 95 12/10/18 00:00 - Labs Result Diagrams: 12/10/18 06:00 12/10/18 06:00 Labs: Laboratory Results - last 24 hr 12/09/18 12/09/18 12/09/18 11:30 11:30 11:30 WBC 9.3 D RBC 4.09 Hgb 10.8 L Hct 34.3 L MCV 83.9 MCH 26.4 MCHC 31.5 RDW 16.7 H Plt Count 271 MPV 9.3 Neut % (Auto) 85.5 H Lymph % (Auto) 7.2 L [place] % (Auto) 6.5 H Eos % (Auto) 0.8 L Baso % (Auto) 0.0 Lymph # (Auto) 0.7 L [place] # (Auto) 0.6 Eos # (Auto) 0.1 Baso # (Auto) 0.00 Absolute Neuts (auto) 7.98 H ESR 90 H PT 99.5 H INR 8.81 H* APTT 88.8 H Sodium 142 Potassium 3.7 Chloride 109 H Carbon Dioxide 25 Anion Gap 12 BUN 15 Creatinine 0.9 Est GFR ( Amer) > 60 Est GFR (Non-Af Amer) > 60 Random Glucose 114 H Calcium 9.0 Phosphorus Magnesium Total Bilirubin 0.6 AST 19 ALT 11 Alkaline Phosphatase 101 Troponin I 0.01 NT-Pro-B Natriuret Pep 4930 H Total Protein 6.5 Albumin 3.1 Globulin 3.3 Albumin/Globulin Ratio 0.9 L Urine Color Urine Appearance Urine pH Ur Specific [place] Urine Protein Urine Glucose (UA) Urine Ketones Urine Blood Urine Nitrate Urine Bilirubin Urine Urobilinogen Ur Leukocyte Esterase Urine RBC Urine WBC Ur Epithelial Cells Urine Bacteria 12/09/18 12/10/18 12/10/18 16:59 06:00 06:00 WBC 6.9 D RBC 3.96 Hgb 10.2 L Hct 33.0 L MCV 83.3 MCH 25.8 MCHC 30.9 L RDW 16.8 H Plt Count 255 MPV 9.1 Neut % (Auto) 80.2 H Lymph % (Auto) 9.2 L [place] % (Auto) 9.6 H Eos % (Auto) 1.0 L Baso % (Auto) 0.0 Lymph # (Auto) 0.6 L [place] # (Auto) 0.7 H Eos # (Auto) 0.1 Baso # (Auto) 0.00 Absolute Neuts (auto) 5.51 ESR PT 19.5 H INR 1.73 APTT Sodium Potassium Chloride Carbon Dioxide Anion Gap BUN Creatinine Est GFR ( Amer) Est GFR (Non-Af Amer) Random Glucose Calcium Phosphorus Magnesium Total Bilirubin AST ALT Alkaline Phosphatase Troponin I NT-Pro-B Natriuret Pep Total Protein Albumin Globulin Albumin/Globulin Ratio Urine Color Yellow Urine Appearance Clear Urine pH 6.0 Ur Specific [place] 1.020 Urine Protein 30 H Urine Glucose (UA) Negative Urine Ketones Negative Urine Blood Large H Urine Nitrate Negative Urine Bilirubin Negative Urine Urobilinogen 0.2 Ur Leukocyte Esterase Negative Urine RBC Tntc H Urine WBC 0 - 2 Ur Epithelial Cells 0 - 2 Urine Bacteria Neg 12/10/18 06:00 WBC RBC Hgb Hct MCV MCH MCHC RDW Plt Count MPV Neut % (Auto) Lymph % (Auto) [place] % (Auto) Eos % (Auto) Baso % (Auto) Lymph # (Auto) [place] # (Auto) Eos # (Auto) Baso # (Auto) Absolute Neuts (auto) ESR PT INR APTT Sodium 143 Potassium 3.2 L Chloride 107 Carbon Dioxide 27 Anion Gap 12 BUN 15 Creatinine 1.0 Est GFR ( Amer) > 60 Est GFR (Non-Af Amer) > 60 Random Glucose 101 Calcium 9.0 Phosphorus 4.0 Magnesium 1.9 Total Bilirubin 0.8 AST 24 ALT 7 Alkaline Phosphatase 94 Troponin I NT-Pro-B Natriuret Pep Total Protein 6.7 Albumin 2.9 L Globulin 3.8 Albumin/Globulin Ratio 0.8 L Urine Color Urine Appearance Urine pH Ur Specific [place] Urine Protein Urine Glucose (UA) Urine Ketones Urine Blood Urine Nitrate Urine Bilirubin Urine Urobilinogen Ur Leukocyte Esterase Urine RBC Urine WBC Ur Epithelial Cells Urine Bacteria Attending/Attestation - Attestation I have personally seen and examined this patient.: Yes I have fully participated in the care of the patient.: Yes I have reviewed all pertinent clinical information: Yes Notes (Text): Patient seen and examined by me with resident at approximately 1:05PM on 12/09/18 in the emergency room. Case including HPI, physical exam, and assessment and plan discussed with resident. Agree with above with following additions/corrections. Patient is an 83-year-old male with past medical history significant for atrial fibrillation on Coumadin, chronic systolic CHF, prediabetes not on medications at home, COPD, coronary artery disease, hypertension, and hyperlipidemia that presented to the emergency room with left hand edema, erythema, and pain. Patient states that the left hand redness, swelling, pain, and warmth started on 12/02/2018. He states that it has not improved since then and has actually gotten worse. He states he has tried heat and ice without much relief. Patient states that he had the same sort of redness on his right arm and hand approximately a month ago. Patient states that is intermittent between the right and left. Patient states that he has been tested for gout in the past and was told he does not have that. Patient denies any trauma to the hand or bug bites. Patient states that he has been seen by the visiting nurse who discussed his hand with his primary care doctor. They only recommended heat and ice per patient. He states he has tried BenGay for pain. He denies any associated fevers. Patient states that he does use his hands a lot for gripping and clim monique up stairs at home and feels it may be associated to that. Patient states that he has also had a loss of appetite. Patient denies any nausea, vomiting, or abdominal pain. Patient states that he has chronic shortness of breath with ambulation secondary to COPD. Patient denies any chest pain or palpitations. No headaches or dizziness. No lightheadedness. No dysuria. No diarrhea or constipation. Patient denies any hematuria or bleeding from any site. 12 point review of systems reviewed by me. Please see above HPI, all other systems negative. Family history: Mother of natural causes. Father of bladder cancer. Physical exam: General: Awake and alert sitting up in bed in no acute distress. HEENT: Normocephalic, atraumatic. Extraocular muscles intact, pupils equal and reactive, no scleral icterus. Oropharynx is pink and moist. No pharyngeal erythema or exudate appreciated. Neck is supple. Hearing grossly intact. Ears and nose externally unremarkable. Cardiovascular: Irregularly irregular rhythm. No murmurs, rubs, or gallops appreciated Pulmonary: Normal respiratory effort. No rhonchi, rales, or wheezing appreciated. Gastrointestinal: Soft, nondistended. Nontender. Positive bowel sounds all 4 quadrants. No guarding. Musculoskeletal: Moves all extremities. No calf tenderness. Bilateral lower extremity pitting edema (chronic per patient). Left hand near index finger with erythema, warmth, and tenderness with palpation. Positive edema bilateral hands. Central nervous system: AAOx3. CN 2-12 grossly intact Dermatologic: Skin warm and dry. Left lower extremity with chronic venous stasis color changes. Assessment and plan: Patient is an 83-year-old male with past medical history significant for atrial fibrillation on Coumadin, chronic systolic CHF, predia betes not on medications at home, COPD, coronary artery disease, hypertension, and hyperlipidemia that presented to the emergency room with left hand edema, erythema, and pain. 1. Left hand cellulitis. Started on vancomycin. ID consulted, follow-up recommendations. Patient afebrile and leukocytosis. Left wrist x-ray per radiologist showed normal left wrist radiographs. Follow-up bilateral upper ex tremity venous Dopplers. 2. Supratherapeutic INR. INR 8.8. Urinalysis with blood. We will give vitamin K. Follow up repeat INR in a.m. We'll hold Coumadin for now. 3. Chronic atrial fibrillation. Coumadin held for now secondary to supratherapeutic INR. Continue home by systolic. 4. COPD. Not in acute exacerbation. Placed on Brovana and Pulmicort. Placed on nebulizer treatments as needed. 5. Chronic systolic CHF. Compensated. Continue home Lasix. Continue home bystolic. 6. Hypertension. Continue home bystolic. 7. Hyperlipidemia. Patient takes Crestor at home. Placed on Lipitor. 8. BPH. Continue Flomax. 9. DVT prophylaxis. Patient on Coumadin with supratherapeutic INR. 10. Patient is a full code Case was discussed in detail with the patient and patient's at bedside regarding current diagnosis and treatment plan. All questions answered.
[2018-12-09] MEDS ORDERED: Phytonadione 10 MG in Sodium Chloride 0.9% 50 ML IV ONE (14:54)
[2018-12-09 17:08] LABS: URINE BILIRUBIN NEGATIVE (NEGATIVE); URINE BLOOD LARGE (NEGATIVE); URINE GLUCOSE (UA) NEGATIVE (NEGATIVE); URINE LEUKOCYTE ESTERASE NEGATIVE Leu/uL (NEGATIVE); URINE PROTEIN 30 mg/dL (<30 mg/dL); URINE UROBILINOGEN 0.2 E.U./dL (<1 E.U./dL)
[2018-12-09 17:10] LABS: URINE COLOR YELLOW (YELLOW)
[2018-12-09 17:22] LABS: URINE APPEARANCE CLEAR (CLEAR); URINE BACTERIA NEG /hpf; URINE EPITHELIAL CELLS 0 - 2 /hpf (0-5); URINE RBC TNTC /hpf (0-2); URINE WBC 0 - 2 /hpf (0-6)
--- NOTE | 2018-12-09 17:22 | CARD ---
APPROVED REPORT Date of service: 12/09/2018 EKG Measurement Heart [id number] <Conclusion> Atrial fibrillation Incomplete left bundle branch block Nonspecific ST and T wave abnormality, probably digitalis effect Prolonged QT Abnormal ECG
[2018-12-09] MEDS ORDERED: Arformoterol 15 mcg/2 ml Inh Sol IH SCH (20:00)
--- NOTE | 2018-12-09 20:07 | US ---
HISTORY: Arm pain and swelling. Evaluate for deep venous thrombosis. PHYSICIAN(S): Marquise Wong MD. FINDINGS: The visualized internal jugular veins are sonographically normal and compressible. No evidence of obstruction or thrombus this is seen. The visualized segments of the subclavian veins are patent with normal waveforms. No sonographic evidence of obstruction or thrombosis is seen. The visualized deep venous systems of both upper extremities proximally are sonographically normal and compressible. IMPRESSION: 1. No sonographic evidence for deep venous thrombosis in the visualized segments of both upper strategies.
--- NOTE | 2018-12-09 20:08 | US ---
HISTORY: Leg pain and swelling. Evaluate for DVT PHYSICIAN(S): Marquise Wong MD. TECHNIQUE: Duplex sonography and color-flow Doppler with graded compression were used to evaluate the deep venous systems of both lower extremities. FINDINGS: The visualized deep venous systems of both lower extremities are sonographically normal and compressible. Normal wave forms and augmentation are seen. There is no sonographic evidence for deep venous thrombosis in the visualized segments of both lower extremities. IMPRESSION: No sonographic evidence for deep venous thrombosis in the visualized segments of both lower extremities.
[2018-12-09] MEDS: Arformoterol 15 mcg/2 ml Inh Sol IH SCH (21:05)
[2018-12-09] MEDS: Budesonide 0.25 mg/2 ml Inhal Susp UD IH SCH (21:05)
[2018-12-10] MEDS: Vancomycin 1gm in NS 250ml 1 GM/250 ML BAG IVPB SCH ×2 (06:23→17:20)
[2018-12-10 06:54] LABS: INR 1.73; PROTHROMBIN TIME 19.5 SECONDS (9.4-12.5)
[2018-12-10 06:55] LABS: EOS # 0.1 (0.0-0.7); HEMOGLOBIN 10.2 g/dL (14.0-18.0); LYMPH # 0.6 (1.2-3.4); LYMPH % 9.2 % (22.0-35.0); MEAN CELL VOLUME 83.3 fl (80.0-105.0); MEAN CORPUSCULAR HEMOGLOBIN 25.8 pg (25.0-35.0); MEAN CORPUSCULAR HGB CONC 30.9 g/dl (31.0-37.0); MEAN PLATELET VOLUME 9.1 fl (7.0-11.0); MONO # 0.7 (0.1-0.6); MONO % 9.6 % (1.0-6.0); RBC 3.96 10^6/uL (3.5-6.1); RED CELL DISTRIBUTION WIDTH 16.8 % (11.5-14.5); WHITE BLOOD COUNT 6.9 10^3/uL (4.5-11.0)
[2018-12-10 07:33] LABS: ALB/GLOB RATIO 0.8 (1.1-1.8); ALBUMIN 2.9 g/dL (3.0-4.8); ALT/SGPT 7 U/L (7-56); AST/SGOT 24 U/L (17-59); BLOOD UREA NITROGEN 15 mg/dL (7-21); GFR NON-AFRICAN AMERICAN > 60
[2018-12-10] MEDS: Arformoterol 15 mcg/2 ml Inh Sol IH SCH ×2 (07:46→20:13)
[2018-12-10] MEDS: Budesonide 0.25 mg/2 ml Inhal Susp UD IH SCH ×2 (07:46→20:13)
[2018-12-10] MEDS ORDERED: Potassium Chloride 20 mEq ER Tab PO STA (07:53)
[2018-12-10 08:36] VITALS: RESP 20
[2018-12-10] MEDS: cefTRIAXone 1 gm 1 GM/100 ML BAG IVPB SCH (09:57)
--- NOTE | 2018-12-10 11:01 | CP.PCM.CON ---
<Sagar Severino - Last Filed: 12/10/18 11:15> History of Present Illness - History of Present Illness History of Present Illness: Sagar Severino D.O. PGY-3, Internal Medicine Resident, Infectious Disease Consultation Note 83 year old male with a PMH of Afib on coumadin, heart failue, pre-DM, COPD, CAD, and HTN who presented [facility] for 3 week history of left hand swelling, redness, tenderness and warmth. Infectious disease consultation was requested for concern of cellulitis. Patient was seen and examined at bedside. Relates how he's been having a lot of issues with both hands/arms. States originally had some redness and swelling on the right wrist and became concerned, but that went away after a few days. Then patient began to have issues with his left arm now for multiple weeks and it has not gotten better. Patient tried warm compressed without improvement. Patient notes the main issue and erythema over the dorsal aspect of the 1st MCP joint. He's denying any trauma to the hand although states somewhat tender at times. No other acute complaints. Review of Systems - Review of Systems All systems: reviewed and no additional remarkable complaints except (as per HPI) Past Patient History - Past Social History Smoking Status: Former Smoker - CARDIAC Hx Angina: Yes Hx Congestive Heart Failure: Yes Hx Hypercholesterolemia: Yes Hx Hypertension: Yes Other/Comment: A-FIB - PULMONARY Hx Chronic Obstructive Pulmonary Disease (COPD): Yes - NEUROLOGICAL Hx Neurological Disorder: No - HEENT Hx HEENT Problems: Yes ([place] BILATERALLY) - RENAL Hx Chronic Kidney Disease: No - ENDOCRINE/METABOLIC Hx Diabetes Mellitus Type 2: Yes (PRE-DIABETIC (NO MEDS)) - HEMATOLOGICAL/ONCOLOGICAL Hx Blood Disorders: No - INTEGUMENTARY Hx Dermatological Problems: Yes (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) Other/Comment: SHINGLES TO BACK 2016 - MUSCULOSKELETAL/RHEUMATOLOGICAL Hx Arthritis: Yes Hx Gout: Yes - GASTROINTESTINAL Hx Gastrointestinal Disorders: No - GENITOURINARY/GYNECOLOGICAL Hx Genitourinary Disorders: No - PSYCHIATRIC Hx Psychophysiologic Disorder: No - SURGICAL HISTORY Hx Surgeries: Yes (TONSILLECTOMY, REMOVAL SKIN CA) - ANESTHESIA Hx Anesthesia Reactions: No Hx Malignant Hyperthermia: No Meds Allergies/Adverse Reactions: Allergies Allergy/AdvReac Type Severity Reaction Status Date / Time No Known Allergies Allergy Verified 12/09/18 11:12 - Medications Medications: Current Medications Albuterol/Ipratropium (Duoneb 3 Mg/0.5 Mg (3 Ml) Ud) 3 ml IH Q2H PRN PRN Reason: Shortness of Breath Arformoterol Tartrate (Brovana) 15 mcg IH [id number] [facility] Last Admin: 12/10/18 07:46 Dose: 15 mcg Atorvastatin Calcium (Lipitor) 40 mg PO DIN [facility] Last Admin: 12/09/18 18:10 Dose: 40 mg Budesonide (Pulmicort Respules) 0.25 mg IH [id number] [facility] Last Admin: 12/10/18 07:46 Dose: 0.25 mg Cyanocobalamin (Vitamin B12 1000 Mcg Tab) 1,000 mcg PO DAILY [facility] Last Admin: 12/10/18 09:57 Dose: 1,000 mcg Folic Acid (Folic Acid) 1 mg PO DAILY [facility] Last Admin: 12/10/18 09:56 Dose: 1 mg Furosemide (Lasix) 40 mg PO DAILY [facility] Last Admin: 12/10/18 09:56 Dose: 40 mg Hydralazine HCl (Apresoline) 10 mg IVP Q6 PRN PRN Reason: sbp > 160 Last Admin: 12/09/18 21:00 Dose: 10 mg Ceftriaxone Sodium (Rocephin 1 Gram Ivpb) 1 gm in 100 mls @ 100 mls/hr IVPB DAILY [facility]; Protocol Stop: 12/19/18 10:01 Last Admin: 12/10/18 09:57 Dose: 100 mls/hr Vancomycin HCl (Vancomycin 1gm) 1 gm in 250 mls @ 167 mls/hr IVPB Q12H [facility]; Protocol Stop: 12/19/18 05:46 Last Admin: 12/10/18 06:23 Dose: 167 mls/hr Nebivolol [Bystolic] (10 Mg (Home Med)) 10 mg PO DAILY [facility] Last Admin: 12/10/18 10:01 Dose: Not Given Tamsulosin HCl (Flomax) 0.4 mg PO DAILY [facility] Last Admin: 12/10/18 09:56 Dose: 0.4 mg Physical Exam - Constitutional Appears: Non-toxic, No Acute Distress - Head Exam Head Exam: ATRAUMATIC, NORMOCEPHALIC - Eye Exam Eye Exam: EOMI. absent: Scleral icterus - ENT Exam ENT Exam: Mucous Membranes Moist - Neck Exam Neck exam: Positive for: Normal Inspection - Respiratory Exam Respiratory Exam: absent: Rales, Rhonchi, Wheezes - Cardiovascular Exam Cardiovascular Exam: +S1, +S2. absent: Gallop, Rubs - GI/Abdominal Exam GI & Abdominal Exam: Normal Bowel Sounds, Soft. absent: Distended, Tenderness - Extremities Exam Additional comments: left upper extremity with some mild swelling compared to the right, erythema over the 1st dorsal aspect MCP and diffusing outwards, no limitation on ROM noted, slight pain with movement, good pulses, good cap refill - Neurological Exam Neurological exam: Alert, Oriented x3 - Skin Skin Exam: Dry, Warm Results - Vital Signs Recent Vital Signs: Last Vital Signs Temp 98 F 12/10/18 08:35 Pulse 91 H 12/10/18 08:35 Resp 20 12/10/18 08:35 BP 154/97 H 12/10/18 09:56 Pulse Ox 97 12/10/18 08:35 - Labs Result Diagrams: 12/10/18 06:00 12/10/18 06:00 Labs: Laboratory Results - last 24 hr 12/09/18 12/09/18 12/09/18 11:30 11:30 11:30 WBC 9.3 D RBC 4.09 Hgb 10.8 L Hct 34.3 L MCV 83.9 MCH 26.4 MCHC 31.5 RDW 16.7 H Plt Count 271 MPV 9.3 Neut % (Auto) 85.5 H Lymph % (Auto) 7.2 L Coles % (Auto) 6.5 H Eos % (Auto) 0.8 L Baso % (Auto) 0.0 Lymph # (Auto) 0.7 L [place] # (Auto) 0.6 Eos # (Auto) 0.1 Baso # (Auto) 0.00 Absolute Neuts (auto) 7.98 H ESR 90 H PT 99.5 H INR 8.81 H* APTT 88.8 H Sodium 142 Potassium 3.7 Chloride 109 H Carbon Dioxide 25 Anion Gap 12 BUN 15 Creatinine 0.9 Est GFR ( Amer) > 60 Est GFR (Non-Af Amer) > 60 Random Glucose 114 H Calcium 9.0 Phosphorus Magnesium Total Bilirubin 0.6 AST 19 ALT 11 Alkaline Phosphatase 101 Troponin I 0.01 NT-Pro-B Natriuret Pep 4930 H Total Protein 6.5 Albumin 3.1 Globulin 3.3 Albumin/Globulin Ratio 0.9 L Urine Color Urine Appearance Urine pH Ur Specific [place] Urine Protein Urine Glucose (UA) Urine Ketones Urine Blood Urine Nitrate Urine Bilirubin Urine Urobilinogen Ur Leukocyte Esterase Urine RBC Urine WBC Ur Epithelial Cells Urine Bacteria 12/09/18 12/10/18 12/10/18 16:59 06:00 06:00 WBC 6.9 D RBC 3.96 Hgb 10.2 L Hct 33.0 L MCV 83.3 MCH 25.8 MCHC 30.9 L RDW 16.8 H Plt Count 255 MPV 9.1 Neut % (Auto) 80.2 H Lymph % (Auto) 9.2 L Coles % (Auto) 9.6 H Eos % (Auto) 1.0 L Baso % (Auto) 0.0 Lymph # (Auto) 0.6 L [place] # (Auto) 0.7 H Eos # (Auto) 0.1 Baso # (Auto) 0.00 Absolute Neuts (auto) 5.51 ESR PT 19.5 H INR 1.73 APTT Sodium Potassium Chloride Carbon Dioxide Anion Gap BUN Creatinine Est GFR ( Amer) Est GFR (Non-Af Amer) Random Glucose Calcium Phosphorus Magnesium Total Bilirubin AST ALT Alkaline Phosphatase Troponin I NT-Pro-B Natriuret Pep Total Protein Albumin Globulin Albumin/Globulin Ratio Urine Color Yellow Urine Appearance Clear Urine pH 6.0 Ur Specific [place] 1.020 Urine Protein 30 H Urine Glucose (UA) Negative Urine Ketones Negative Urine Blood Large H Urine Nitrate Negative Urine Bilirubin Negative Urine Urobilinogen 0.2 Ur Leukocyte Esterase Negative Urine RBC Tntc H Urine WBC 0 - 2 Ur Epithelial Cells 0 - 2 Urine Bacteria Neg 12/10/18 12/10/18 06:00 06:00 WBC RBC Hgb Hct MCV MCH MCHC RDW Plt Count MPV Neut % (Auto) Lymph % (Auto) Coles % (Auto) Eos % (Auto) Baso % (Auto) Lymph # (Auto) Coles # (Auto) Eos # (Auto) Baso # (Auto) Absolute Neuts (auto) ESR 110 H PT INR APTT Sodium 143 Potassium 3.2 L Chloride 107 Carbon Dioxide 27 Anion Gap 12 BUN 15 Creatinine 1.0 Est GFR ( Amer) > 60 Est GFR (Non-Af Amer) > 60 Random Glucose 101 Calcium 9.0 Phosphorus 4.0 Magnesium 1.9 Total Bilirubin 0.8 AST 24 ALT 7 Alkaline Phosphatase 94 Troponin I NT-Pro-B Natriuret Pep Total Protein 6.7 Albumin 2.9 L Globulin 3.8 Albumin/Globulin Ratio 0.8 L Urine Color Urine Appearance Urine pH Ur Specific [place] Urine Protein Urine Glucose (UA) Urine Ketones Urine Blood Urine Nitrate Urine Bilirubin Urine Urobilinogen Ur Leukocyte Esterase Urine RBC Urine WBC Ur Epithelial Cells Urine Bacteria Assessment & Plan - Assessment and Plan (Free Text) Assessment: 83 year old male with a PMH of Afib on coumadin, heart failue, pre-DM, COPD, CAD, and HTN who presented [facility] for 3 week history of left hand swelling, redness, tenderness and warmth. Infectious disease consultation was requested for concern of cellulitis. Plan: Left hand cellulitis Afib on coumadin HF Pre-DM COPD CAD HTN Duplex negative Wrist xray negative Afebrile No leukocytosis BCx pending CRP pending Empirically on ceftriaxone/vancomycin We will follow with you Patient was seen and examined and case to be discussed with attending physician Thank you for the pleasure of participating in the care of this patient - Date & Time Date: 12/10/18 Time: 07:05 <Nishant Mireles - Last Filed: 12/10/18 11:22> Meds - Medications Medications: Current Medications Albuterol/Ipratropium (Duoneb 3 Mg/0.5 Mg (3 Ml) Ud) 3 ml IH Q2H PRN PRN Reason: Shortness of Breath Arformoterol Tartrate (Brovana) 15 mcg IH [id number] [facility] Last Admin: 12/10/18 07:46 Dose: 15 mcg Atorvastatin Calcium (Lipitor) 40 mg PO DIN [facility] Last Admin: 12/09/18 18:10 Dose: 40 mg Budesonide (Pulmicort Respules) 0.25 mg IH [id number] [facility] Last Admin: 12/10/18 07:46 Dose: 0.25 mg Cyanocobalamin (Vitamin B12 1000 Mcg Tab) 1,000 mcg PO DAILY [facility] Last Admin: 12/10/18 09:57 Dose: 1,000 mcg Folic Acid (Folic Acid) 1 mg PO DAILY [facility] Last Admin: 12/10/18 09:56 Dose: 1 mg Furosemide (Lasix) 40 mg PO DAILY [facility] Last Admin: 12/10/18 09:56 Dose: 40 mg Hydralazine HCl (Apresoline) 10 mg IVP Q6 PRN PRN Reason: sbp > 160 Last Admin: 12/09/18 21:00 Dose: 10 mg Ceftriaxone Sodium (Rocephin 1 Gram Ivpb) 1 gm in 100 mls @ 100 mls/hr IVPB DAILY [facility]; Protocol Stop: 12/19/18 10:01 Last Admin: 12/10/18 09:57 Dose: 100 mls/hr Vancomycin HCl (Vancomycin 1gm) 1 gm in 250 mls @ 167 mls/hr IVPB Q12H [facility]; Protocol Stop: 12/19/18 05:46 Last Admin: 12/10/18 06:23 Dose: 167 mls/hr Nebivolol [Bystolic] (10 Mg (Home Med)) 10 mg PO DAILY [facility] Last Admin: 12/10/18 10:01 Dose: Not Given Tamsulosin HCl (Flomax) 0.4 mg PO DAILY [facility] Last Admin: 12/10/18 09:56 Dose: 0.4 mg Warfarin Sodium (Coumadin) 5 mg PO 1800 [facility]; Protocol Results - Vital Signs Recent Vital Signs: Last Vital Signs Temp 98 F 12/10/18 08:35 Pulse 91 H 12/10/18 08:35 Resp 20 12/10/18 08:35 BP 154/97 H 12/10/18 09:56 Pulse Ox 97 12/10/18 08:35 - Labs Result Diagrams: 12/10/18 06:00 12/10/18 06:00 Labs: Laboratory Results - last 24 hr 12/09/18 12/09/18 12/09/18 11:30 11:30 11:30 WBC 9.3 D RBC 4.09 Hgb 10.8 L Hct 34.3 L MCV 83.9 MCH 26.4 MCHC 31.5 RDW 16.7 H Plt Count 271 MPV 9.3 Neut % (Auto) 85.5 H Lymph % (Auto) 7.2 L Coles % (Auto) 6.5 H Eos % (Auto) 0.8 L Baso % (Auto) 0.0 Lymph # (Auto) 0.7 L [place] # (Auto) 0.6 Eos # (Auto) 0.1 Baso # (Auto) 0.00 Absolute Neuts (auto) 7.98 H ESR 90 H PT 99.5 H INR 8.81 H* APTT 88.8 H Sodium 142 Potassium 3.7 Chloride 109 H Carbon Dioxide 25 Anion Gap 12 BUN 15 Creatinine 0.9 Est GFR ( Amer) > 60 Est GFR (Non-Af Amer) > 60 Random Glucose 114 H Calcium 9.0 Phosphorus Magnesium Total Bilirubin 0.6 AST 19 ALT 11 Alkaline Phosphatase 101 Troponin I 0.01 NT-Pro-B Natriuret Pep 4930 H Total Protein 6.5 Albumin 3.1 Globulin 3.3 Albumin/Globulin Ratio 0.9 L Urine Color Urine Appearance Urine pH Ur Specific [place] Urine Protein Urine Glucose (UA) Urine Ketones Urine Blood Urine Nitrate Urine Bilirubin Urine Urobilinogen Ur Leukocyte Esterase Urine RBC Urine WBC Ur Epithelial Cells Urine Bacteria 12/09/18 12/10/18 12/10/18 16:59 06:00 06:00 WBC 6.9 D RBC 3.96 Hgb 10.2 L Hct 33.0 L MCV 83.3 MCH 25.8 MCHC 30.9 L RDW 16.8 H Plt Count 255 MPV 9.1 Neut % (Auto) 80.2 H Lymph % (Auto) 9.2 L [place] % (Auto) 9.6 H Eos % (Auto) 1.0 L Baso % (Auto) 0.0 Lymph # (Auto) 0.6 L [place] # (Auto) 0.7 H Eos # (Auto) 0.1 Baso # (Auto) 0.00 Absolute Neuts (auto) 5.51 ESR PT 19.5 H INR 1.73 APTT Sodium Potassium Chloride Carbon Dioxide Anion Gap BUN Creatinine Est GFR ( Amer) Est GFR (Non-Af Amer) Random Glucose Calcium Phosphorus Magnesium Total Bilirubin AST ALT Alkaline Phosphatase Troponin I NT-Pro-B Natriuret Pep Total Protein Albumin Globulin Albumin/Globulin Ratio Urine Color Yellow Urine Appearance Clear Urine pH 6.0 Ur Specific [place] 1.020 Urine Protein 30 H Urine Glucose (UA) Negative Urine Ketones Negative Urine Blood Large H Urine Nitrate Negative Urine Bilirubin Negative Urine Urobilinogen 0.2 Ur Leukocyte Esterase Negative Urine RBC Tntc H Urine WBC 0 - 2 Ur Epithelial Cells 0 - 2 Urine Bacteria Neg 12/10/18 12/10/18 06:00 06:00 WBC RBC Hgb Hct MCV MCH MCHC RDW Plt Count MPV Neut % (Auto) Lymph % (Auto) [place] % (Auto) Eos % (Auto) Baso % (Auto) Lymph # (Auto) [place] # (Auto) Eos # (Auto) Baso # (Auto) Absolute Neuts (auto) ESR 110 H PT INR APTT Sodium 143 Potassium 3.2 L Chloride 107 Carbon Dioxide 27 Anion Gap 12 BUN 15 Creatinine 1.0 Est GFR ( Amer) > 60 Est GFR (Non-Af Amer) > 60 Random Glucose 101 Calcium 9.0 Phosphorus 4.0 Magnesium 1.9 Total Bilirubin 0.8 AST 24 ALT 7 Alkaline Phosphatase 94 Troponin I NT-Pro-B Natriuret Pep Total Protein 6.7 Albumin 2.9 L Globulin 3.8 Albumin/Globulin Ratio 0.8 L Urine Color Urine Appearance Urine pH Ur Specific [place] Urine Protein Urine Glucose (UA) Urine Ketones Urine Blood Urine Nitrate Urine Bilirubin Urine Urobilinogen Ur Leukocyte Esterase Urine RBC Urine WBC Ur Epithelial Cells Urine Bacteria Attending/Attestation - Attestation I have personally seen and examined this patient.: Yes I have fully participated in the care of the patient.: Yes I have reviewed all pertinent clinical information: Yes
[2018-12-10 13:20] LABS: BLOOD UREA NITROGEN 18 mg/dL (7-21); CALCIUM 9.4 mg/dL (8.4-10.5); GFR NON-AFRICAN AMERICAN > 60
--- NOTE | 2018-12-10 13:43 | CP.PCM.PN ---
<Osmani Escobedo - Last Filed: 12/10/18 13:39> Subjective - Date & Time of Evaluation Date of Evaluation: 12/10/18 Time of Evaluation: 10:00 - Subjective Subjective: Osmani Escobedo PGY1 Medicine Progress Note Patient seen and examined at bedside this morning. No acute events reported overnight. He continues to admit to left arm pain and swelling but states symptoms are improved from yesterday. Offers no new complaints today. LUE CT pending. Will continue IV antibiotics for now. Objective - Vital Signs/Intake and Output Vital Signs (last 24 hours): Temp Pulse Resp BP Pulse Ox 98 F 91 H 20 154/97 H 97 12/10/18 08:35 12/10/18 08:35 12/10/18 08:35 12/10/18 09:56 12/10/18 08:35 Intake and Output: 12/10/18 12/10/18 06:59 18:59 Intake Total 370 Output Total 250 Balance 120 - Medications Medications: Current Medications Albuterol/Ipratropium (Duoneb 3 Mg/0.5 Mg (3 Ml) Ud) 3 ml IH Q2H PRN PRN Reason: Shortness of Breath Arformoterol Tartrate (Brovana) 15 mcg IH [id number] [facility] Last Admin: 12/10/18 07:46 Dose: 15 mcg Atorvastatin Calcium (Lipitor) 40 mg PO DIN [facility] Last Admin: 12/09/18 18:10 Dose: 40 mg Budesonide (Pulmicort Respules) 0.25 mg IH [id number] [facility] Last Admin: 12/10/18 07:46 Dose: 0.25 mg Cyanocobalamin (Vitamin B12 1000 Mcg Tab) 1,000 mcg PO DAILY [facility] Last Admin: 12/10/18 09:57 Dose: 1,000 mcg Folic Acid (Folic Acid) 1 mg PO DAILY [facility] Last Admin: 12/10/18 09:56 Dose: 1 mg Furosemide (Lasix) 40 mg PO DAILY [facility] Last Admin: 12/10/18 09:56 Dose: 40 mg Hydralazine HCl (Apresoline) 10 mg IVP Q6 PRN PRN Reason: sbp > 160 Last Admin: 12/09/18 21:00 Dose: 10 mg Ceftriaxone Sodium (Rocephin 1 Gram Ivpb) 1 gm in 100 mls @ 100 mls/hr IVPB DAILY [facility]; Protocol Stop: 12/19/18 10:01 Last Admin: 12/10/18 09:57 Dose: 100 mls/hr Vancomycin HCl (Vancomycin 1gm) 1 gm in 250 mls @ 167 mls/hr IVPB Q12H [facility]; Protocol Stop: 12/19/18 05:46 Last Admin: 12/10/18 06:23 Dose: 167 mls/hr Nebivolol [Bystolic] (10 Mg (Home Med)) 10 mg PO DAILY [facility] Last Admin: 12/10/18 10:01 Dose: Not Given Tamsulosin HCl (Flomax) 0.4 mg PO DAILY [facility] Last Admin: 12/10/18 09:56 Dose: 0.4 mg Warfarin Sodium (Coumadin) 5 mg PO 1800 [facility]; Protocol - Labs Labs: 12/10/18 06:00 12/10/18 13:00 PT 19.5 SECONDS (9.4-12.5) H 12/10/18 06:00 INR 1.73 12/10/18 06:00 APTT 88.8 Seconds (26.9-38.3) H 12/09/18 11:30 Physical Exam - Constitutional Appears: No Acute Distress - Head Exam Head Exam: ATRAUMATIC, NORMAL INSPECTION - Eye Exam Eye Exam: EOMI Pupil Exam: PERRL - ENT Exam ENT Exam: Mucous Membranes Moist - Neck Exam Neck exam: Positive for: Normal Inspection - Respiratory Exam Respiratory Exam: Clear to Auscultation Bilateral. absent: Accessory Muscle Use, Wheezes, Respiratory Distress - Cardiovascular Exam Cardiovascular Exam: Irregular Rhythm, +S1, +S2. absent: Tachycardia - GI/Abdominal Exam GI & Abdominal Exam: Normal Bowel Sounds, Soft. absent: Firm, Guarding, Tenderness - Extremities Exam Extremities exam: Positive for: pedal pulses present. Negative for: calf tenderness Additional comments: LUE swelling, erythema, tenderness, warmth appreciated. No fluctuance/drainage/sharp demarcation appreciated LLE dry eczematic changes noted with swelling +2 LLE and +1 RLE. - Neurological Exam Neurological exam: Alert, CN II-XII Intact, Oriented x3 - Skin Skin Exam: Dry, Normal Color Assessment and Plan - Assessment and Plan (Free Text) Assessment: This is an 83 year old male with PMH of afib on coumadin, CHF, pre-DM, COPD not on home O2, CAD and HTN presenting to the hospital for 3 week history of left hand swelling, redness, tenderness and warmth. Will continue IV antibiotics for now. Plan: LUE cellulitis -upper and lower extremity doppler's are unremarkable -continue vancomycin and rocephin day 1 -ID on consult, Dr. Mireles -afebrile, no WBC -blood culture shows no growth for one day -PT eval pending -left hand xray unremarkable -LUE CT pending -tylenol prn for pain History of afib -continue home warfarin 5mg Supratherapeutic INR - resolved -INR is 1.73 today frpm 8.81 yesterday -monitor INR History of systolic CHF -no echo on file -BNP elevated on admission -CXR shows no active disease -continue lasix 40mg History of COPD -not in active SOB, symptoms controlled -duonebs, pulmicort, brovana Pre-DM -monitor glucose, not currently on medication History of CAD -continue statin History of HTN -start lopressor 12.5mg BID, pharmacy does not have equivalent for home bystolic -hydralazine prn PPX -DVT ppx Patient seen and case discussed with attending, Naomy Arreola <Christine Segura R - Last Filed: 12/11/18 08:35> Objective - Vital Signs/Intake and Output Vital Signs (last 24 hours): Temp Pulse Resp BP Pulse Ox 98.2 F 84 20 168/99 H 99 12/11/18 00:13 12/11/18 06:00 12/11/18 00:13 12/11/18 05:26 12/11/18 00:13 Intake and Output: 12/11/18 12/11/18 06:59 18:59 Intake Total 250 Balance 250 - Medications Medications: Current Medications Acetaminophen (Tylenol 325mg Tab) 650 mg PO Q6H PRN PRN Reason: Pain, moderate (4-7) Albuterol/Ipratropium (Duoneb 3 Mg/0.5 Mg (3 Ml) Ud) 3 ml IH Q2H PRN PRN Reason: Shortness of Breath Last Admin: 12/11/18 08:08 Dose: 3 ml Arformoterol Tartrate (Brovana) 15 mcg IH [id number] [facility] Last Admin: 12/11/18 08:07 Dose: 15 mcg Atorvastatin Calcium (Lipitor) 40 mg PO DIN [facility] Last Admin: 12/10/18 17:08 Dose: 40 mg Budesonide (Pulmicort Respules) 0.25 mg IH [id number] [facility] Last Admin: 12/11/18 08:08 Dose: 0.25 mg Cyanocobalamin (Vitamin B12 1000 Mcg Tab) 1,000 mcg PO DAILY [facility] Last Admin: 12/10/18 09:57 Dose: 1,000 mcg Folic Acid (Folic Acid) 1 mg PO DAILY [facility] Last Admin: 12/10/18 09:56 Dose: 1 mg Furosemide (Lasix) 40 mg PO DAILY [facility] Last Admin: 12/10/18 09:56 Dose: 40 mg Hydralazine HCl (Apresoline) 10 mg IVP Q6 PRN PRN Reason: sbp > 160 Last Admin: 12/11/18 05:26 Dose: 10 mg Ceftriaxone Sodium (Rocephin 1 Gram Ivpb) 1 gm in 100 mls @ 100 mls/hr IVPB DAILY [facility]; Protocol Stop: 12/19/18 10:01 Last Admin: 12/10/18 09:57 Dose: 100 mls/hr Vancomycin HCl (Vancomycin 1gm) 1 gm in 250 mls @ 167 mls/hr IVPB Q12H [facility]; Protocol Stop: 12/19/18 05:46 Last Admin: 12/11/18 05:24 Dose: 167 mls/hr Metoprolol Tartrate (Lopressor) 12.5 mg PO 0800,1800 [facility] Last Admin: 12/10/18 17:15 Dose: 12.5 mg Tamsulosin HCl (Flomax) 0.4 mg PO DAILY [facility] Last Admin: 12/10/18 09:56 Dose: 0.4 mg Warfarin Sodium (Coumadin) 5 mg PO 1800 [facility]; Protocol Last Admin: 12/10/18 17:08 Dose: 5 mg - Labs Labs: 12/11/18 06:45 12/11/18 06:45 PT 18.9 SECONDS (9.4-12.5) H 12/11/18 06:45 INR 1.67 12/11/18 06:45 APTT 88.8 Seconds (26.9-38.3) H 12/09/18 11:30 Attending/Attestation - Attestation I have personally seen and examined this patient.: Yes I have fully participated in the care of the patient.: Yes I have reviewed all pertinent clinical information, including history, physical exam and plan: Yes Notes (Text): Patient seen and examined by me with resident at approximately 11AM on 12/10/18. Case including HPI, physical exam, and assessment and plan discussed with resident. Agree with above with following additions/corrections. Patient is an 83-year-old male with past medical history significant for atrial fibrillation on Coumadin, chronic systolic CHF, prediabetes not on medications at home, COPD, coronary artery disease, hypertension, and hyperlipidemia that presented to the emergency room with left hand edema, erythema, and pain. Patient states that he is feeling a little better today. States he has pain his left hand that is intermittent. Patient feels that left hand is slightly better today. He denies any chest pain or palpitations. Shortness of breath is chronic. No headaches or dizziness. No fevers or chills. No nausea, vomiting, or abdominal pain. No dysuria. Physical exam: General: Awake and alert sitting up in bed in no acute distress. HEENT: Normocephalic, atraumatic. Extraocular muscles intact, pupils equal and reactive, no scleral icterus. Oropharynx is pink and moist. No pharyngeal erythema or exudate appreciated. Neck is supple. Cardiovascular: Irregularly irregular rhythm. No murmurs, rubs, or gallops appreciated Pulmonary: Normal respiratory effort. No rhonchi, rales, or wheezing appreciated. Gastrointestinal: Soft, nondistended. Nontender. Positive bowel sounds all 4 quadrants. No guarding. Musculoskeletal: Moves all extremities. No calf tenderness. Bilateral lower extremity pitting edema (chronic per patient). Left hand near index finger and thenar eminence with erythema, warmth, and tenderness with palpation. Positive edema bilateral hands. Central nervous system: AAOx3. CN 2-12 grossly intact Dermatologic: Skin warm and dry. Left lower extremity with chronic venous stasis color changes. Assessment and plan: Patient is an 83-year-old male with past medical history significant for atrial fibrillation on Coumadin, chronic systolic CHF, prediabetes not on medications at home, COPD, coronary artery disease, hypertension, and hyperlipidemia that presented to the emergency room with left hand edema, erythema, and pain. 1. Left hand cellulitis. Appears slightly better today. ID following, recommendations appreciated. Continue Rocephin and Vancomycin. LUE CT pending. Patient afebrile. No leukocytosis. Left wrist x-ray per radiologist showed normal left wrist radiographs. Bilateral upper extremity venous Dopplers negative for DVT. 2. Supratherapeutic INR. Resolved. Will resume home coumdain. Continue to monitor INR. 3. Chronic atrial fibrillation. Continue home coumadin. Placed on metoprolol here. Patient takes bystolic at home. 4. COPD. Not in acute exacerbation. Continue Brovana and Pulmicort. Continue nebulizer treatments as needed. 5. Chronic systolic CHF. Compensated. Continue home Lasix. Placed on metoprolol here. Patient takes bystolic at home. 6. Hypertension. Continue metoprolol 7. Hyperlipidemia. Patient takes Crestor at home. Continue Lipitor here 8. BPH. Continue Flomax. 9. DVT prophylaxis. Patient on coumadin. 10. Patient is a full code Case was discussed in detail with the patient and patient's at bedside regarding current diagnosis and treatment plan. All questions answered.
--- NOTE | 2018-12-10 15:54 | CT ---
Date of service: 12/10/2018 PROCEDURE: CT of the left wrist and hand HISTORY: wrist and hand cellulitis, high CRP COMPARISON: TECHNIQUE: Radiation dose: Total exam DLP = 298 mGy-cm. This CT exam was performed using one or more of the following dose reduction techniques: Automated exposure control, adjustment of the mA and/or kV according to patient size, and/or use of iterative reconstruction technique. FINDINGS: Subcutaneous edema is seen over the dorsum of the hand. There is no evidence of bony destruction to suggest osteomyelitis. There is no focal abscess. Cystic degenerative changes are seen in the 1st carpal row. IMPRESSION: No evidence of osteomyelitis
[2018-12-11 00:14] VITALS: TEMP 98.2; O2SAT 99
[2018-12-11] MEDS: Vancomycin 1gm in NS 250ml 1 GM/250 ML BAG IVPB SCH ×2 (05:24→17:43)
[2018-12-11 07:11] LABS: EOS # 0.1 (0.0-0.7); EOS % 0.6 % (1.5-5.0); HEMOGLOBIN 10.3 g/dL (14.0-18.0); LYMPH # 0.7 (1.2-3.4); LYMPH % 8.9 % (22.0-35.0); MEAN CELL VOLUME 83.8 fl (80.0-105.0); MEAN CORPUSCULAR HEMOGLOBIN 25.8 pg (25.0-35.0); MEAN CORPUSCULAR HGB CONC 30.7 g/dl (31.0-37.0); MEAN PLATELET VOLUME 9.3 fl (7.0-11.0); MONO # 1.1 (0.1-0.6); MONO % 13.1 % (1.0-6.0); RED CELL DISTRIBUTION WIDTH 16.9 % (11.5-14.5)
[2018-12-11 07:15] LABS: INR 1.67; PROTHROMBIN TIME 18.9 SECONDS (9.4-12.5)
[2018-12-11 07:36] LABS: ALB/GLOB RATIO 0.8 (1.1-1.8); ALBUMIN 3.3 g/dL (3.0-4.8); ALT/SGPT 9 U/L (7-56); AST/SGOT 22 U/L (17-59); BLOOD UREA NITROGEN 16 mg/dL (7-21); CALCIUM 9.3 mg/dL (8.4-10.5); GFR NON-AFRICAN AMERICAN > 60
[2018-12-11] MEDS ORDERED: Enoxaparin 120 mg Syringe SC ONE (07:42)
[2018-12-11] MEDS: Arformoterol 15 mcg/2 ml Inh Sol IH SCH ×2 (08:07→19:23)
[2018-12-11] MEDS: Albuterol-Ipratrop 3 mg / 0.5 (3 ml) UD IH PRN ×2 (08:08→19:23)
[2018-12-11] MEDS: Budesonide 0.25 mg/2 ml Inhal Susp UD IH SCH ×2 (08:08→19:23)
[2018-12-11] MEDS ORDERED: Potassium Chloride 20 mEq ER Tab PO ONE (08:24)
[2018-12-11] MEDS: cefTRIAXone 1 gm 1 GM/100 ML BAG IVPB SCH (09:15)
--- NOTE | 2018-12-11 13:40 | CP.PCM.PN ---
<Sagar Severino - Last Filed: 12/11/18 13:37> Subjective - Date & Time of Evaluation Date of Evaluation: 12/11/18 Time of Evaluation: 06:45 - Subjective Subjective: Sagar Severino D.O. PGY-3, Internal Medicine Resident, Infectious Disease Progress Note 83 year old male with a PMH of Afib on coumadin, heart failue, pre-DM, COPD, CAD, and HTN who presented [facility] for 3 week history of left hand swelling, redne ss, tenderness and warmth. Infectious disease consultation was requested for concern of cellulitis. Patient was seen and examined at bedside. States his hand getting less red. Also less swollen. Wants to go home. Objective - Vital Signs/Intake and Output Vital Signs (last 24 hours): Temp Pulse Resp BP Pulse Ox 98.2 F 110 H 20 168/99 H 99 12/11/18 00:13 12/11/18 10:00 12/11/18 00:13 12/11/18 09:13 12/11/18 00:13 Intake and Output: 12/11/18 12/11/18 06:59 18:59 Intake Total 250 Balance 250 - Medications Medications: Current Medications Acetaminophen (Tylenol 325mg Tab) 650 mg PO Q6H PRN PRN Reason: Pain, moderate (4-7) Albuterol/Ipratropium (Duoneb 3 Mg/0.5 Mg (3 Ml) Ud) 3 ml IH Q2H PRN PRN Reason: Shortness of Breath Last Admin: 12/11/18 08:08 Dose: 3 ml Arformoterol Tartrate (Brovana) 15 mcg IH [id number] [facility] Last Admin: 12/11/18 08:07 Dose: 15 mcg Atorvastatin Calcium (Lipitor) 40 mg PO DIN [facility] Last Admin: 12/10/18 17:08 Dose: 40 mg Budesonide (Pulmicort Respules) 0.25 mg IH [id number] [facility] Last Admin: 12/11/18 08:08 Dose: 0.25 mg Cyanocobalamin (Vitamin B12 1000 Mcg Tab) 1,000 mcg PO DAILY [facility] Last Admin: 12/11/18 09:15 Dose: 1,000 mcg Folic Acid (Folic Acid) 1 mg PO DAILY [facility] Last Admin: 12/11/18 09:12 Dose: 1 mg Furosemide (Lasix) 40 mg PO DAILY [facility] Last Admin: 12/11/18 09:13 Dose: 40 mg Hydralazine HCl (Apresoline) 10 mg IVP Q6 PRN PRN Reason: sbp > 160 Last Admin: 12/11/18 05:26 Dose: 10 mg Ceftriaxone Sodium (Rocephin 1 Gram Ivpb) 1 gm in 100 mls @ 100 mls/hr IVPB DA [facility]; Protocol Stop: 12/19/18 10:01 Last Admin: 12/11/18 09:15 Dose: 100 mls/hr Vancomycin HCl (Vancomycin 1gm) 1 gm in 250 mls @ 167 mls/hr IVPB Q12H [facility]; Protocol Stop: 12/19/18 05:46 Last Admin: 12/11/18 05:24 Dose: 167 mls/hr Metoprolol Tartrate (Lopressor) 12.5 mg PO 0800,1800 [facility] Last Admin: 12/11/18 09:00 Dose: 12.5 mg Tamsulosin HCl (Flomax) 0.4 mg PO DAILY [facility] Last Admin: 12/11/18 09:11 Dose: 0.4 mg Warfarin Sodium (Coumadin) 5 mg PO 1800 [facility]; Protocol Last Admin: 12/10/18 17:08 Dose: 5 mg Warfarin Sodium (Coumadin) 7.5 mg PO 1800 [facility]; Protocol Stop: 12/11/18 18:01 - Labs Labs: 12/11/18 06:45 12/11/18 06:45 PT 18.9 SECONDS (9.4-12.5) H 12/11/18 06:45 INR 1.67 12/11/18 06:45 APTT 88.8 Seconds (26.9-38.3) H 12/09/18 11:30 - Constitutional Appears: Non-toxic, No Acute Distress - Head Exam Head Exam: ATRAUMATIC, NORMOCEPHALIC - Eye Exam Eye Exam: EOMI. absent: Scleral icterus - ENT Exam ENT Exam: Mucous Membranes Moist - Neck Exam Neck exam: Positive for: Normal Inspection - Respiratory Exam Respiratory Exam: absent: Rales, Rhonchi, Wheezes - Cardiovascular Exam Cardiovascular Exam: +S1, +S2. absent: Gallop, Rubs - GI/Abdominal Exam GI & Abdominal Exam: Normal Bowel Sounds, Soft. absent: Distended, Tenderness - Extremities Exam Additional comments: swelling and erythema improved from area that was marked - Neurological Exam Neurological exam: Alert, Oriented x3 - Skin Skin Exam: Dry, Warm Assessment and Plan - Assessment and Plan (Free Text) Assessment: 83 year old male with a PMH of Afib on coumadin, heart failue, pre-DM, COPD, CAD, and HTN who presented [facility] for 3 week history of left hand swelling, re dness, tenderness and warmth. Infectious disease consultation was requested for concern of cellulitis. Plan: Left hand cellulitis Afib on coumadin HF Pre-DM COPD CAD HTN Afebrile No leukocytosis BCx negative 2/2 day 2 CRP elevated so ordered CT of hand, no signs of osteomyelitis per radiologist read Continue on ceftriaxone/vancomycin day 2 We will follow with you Patient was seen and examined and case to be discussed with attending physician Thank you for the pleasure of participating in the care of this patient <Juan Han - Last Filed: 12/11/18 22:27> Objective - Vital Signs/Intake and Output Vital Signs (last 24 hours): Temp Pulse Resp BP Pulse Ox 98.2 F 110 H 20 170/88 H 99 12/11/18 00:13 12/11/18 18:00 12/11/18 00:13 12/11/18 17:43 12/11/18 00:13 - Medications Medications: Current Medications Acetaminophen (Tylenol 325mg Tab) 650 mg PO Q6H PRN PRN Reason: Pain, moderate (4-7) Albuterol/Ipratropium (Duoneb 3 Mg/0.5 Mg (3 Ml) Ud) 3 ml IH Q2H PRN PRN Reason: Shortness of Breath Last Admin: 12/11/18 19:23 Dose: 3 ml Arformoterol Tartrate (Brovana) 15 mcg IH [id number] [facility] Last Admin: 12/11/18 19:23 Dose: 15 mcg Atorvastatin Calcium (Lipitor) 40 mg PO DIN [facility] Last Admin: 12/11/18 17:43 Dose: 40 mg Budesonide (Pulmicort Respules) 0.25 mg IH [id number] [facility] Last Admin: 12/11/18 19:23 Dose: 0.25 mg Cyanocobalamin (Vitamin B12 1000 Mcg Tab) 1,000 mcg PO DAILY [facility] Last Admin: 12/11/18 09:15 Dose: 1,000 mcg Folic Acid (Folic Acid) 1 mg PO DAILY [facility] Last Admin: 12/11/18 09:12 Dose: 1 mg Furosemide (Lasix) 40 mg PO DAILY [facility] Last Admin: 12/11/18 09:13 Dose: 40 mg Hydralazine HCl (Apresoline) 10 mg IVP Q6 PRN PRN Reason: sbp > 160 Last Admin: 12/11/18 17:41 Dose: 10 mg Ceftriaxone Sodium (Rocephin 1 Gram Ivpb) 1 gm in 100 mls @ 100 mls/hr IVPB DAILY [facility]; Protocol Stop: 12/19/18 10:01 Last Admin: 12/11/18 09:15 Dose: 100 mls/hr Vancomycin HCl (Vancomycin 1gm) 1 gm in 250 mls @ 167 mls/hr IVPB Q12H [facility]; Protocol Stop: 12/19/18 05:46 Last Admin: 12/11/18 17:43 Dose: 167 mls/hr Metoprolol Tartrate (Lopressor) 25 mg PO 0800,1800 [facility] Last Admin: 12/11/18 17:43 Dose: 25 mg Tamsulosin HCl (Flomax) 0.4 mg PO DAILY [facility] Last Admin: 12/11/18 09:11 Dose: 0.4 mg Warfarin Sodium (Coumadin) 5 mg PO 1800 [facility]; Protocol Last Admin: 12/10/18 17:08 Dose: 5 mg - Labs Labs: 12/11/18 06:45 12/11/18 06:45 PT 18.9 SECONDS (9.4-12.5) H 12/11/18 06:45 INR 1.67 12/11/18 06:45 APTT 88.8 Seconds (26.9-38.3) H 12/09/18 11:30 Assessment and Plan - Assessment and Plan (Free Text) Plan: Infectious Diseases Attending Physician Attestation Patient seen and examined at bedside, discussed with medical appointment clerk. I have reviewed the HPI, ROS, physical examination findings. I have also reviewed the pertinent labs and diagnostic imaging. I have fully participiated in the care of this patient. I agree with the above findings, assessment, plan. In addition, will continue Vancomycin and Rocephin for this patient with left hand skin and skin structure infection. Follow up final blood cx results. CT of hand did not suggest osteomyelitis.
--- NOTE | 2018-12-11 14:39 | CP.PCM.CON ---
History of Present Illness - History of Present Illness History of Present Illness: Palliative consult requested by Dr Spua Segura Reason: Advance care planning 83 year old male with history of Afib on coumadin, CHF, COPD, CAD, and HTN who presented [facility] for 3 week history of left hand swelling, redness, tenderness and warmth. He's denied any trauma to the hand although states somewhat tender at times. No other acute complaints. up stairs. He denies history of gout, recent trauma, fevers, chest pain, new SOB, melanic stools, abdominal pain, diarrhea, constipation, urinary symptoms, numbness, tingling and chills. PMHx: afib on coumadin, CHF, pre-DM, COPD not on home O2, CAD and HTN. PSHx: tonsillectomy Social History: Former smoker, quit 40 years with 30 pack year history. Quit drinking alcohol 25 years ago, denies drug use. , lives with spouse. Family History: Father had bladder cancer. Advance Care Planning: The patient does not have an Advanced Care Review of Systems: As per HPI, 12 point ROS otherwise unremarkable. 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) Other/Comment: SHINGLES TO BACK 2015 - MUSCULOSKELETAL/RHEUMATOLOGICAL Hx Arthritis: Yes - GASTROINTESTINAL Hx Gastrointestinal Disorders: No - GENITOURINARY/GYNECOLOGICAL Hx Genitourinary Disorders: No - PSYCHIATRIC Hx Psychophysiologic Disorder: No - SURGICAL HISTORY Hx Surgeries: Yes (TONSILLECTOMY, REMOVAL SKIN CA) - ANESTHESIA Hx Anesthesia Reactions: No Hx Malignant Hyperthermia: No Meds Allergies/Adverse Reactions: Allergies Allergy/AdvReac Type Severity Reaction Status Date / Time No Known Allergies Allergy Verified 12/09/18 11:12 - Medications Medications: Current Medications Acetaminophen (Tylenol 325mg Tab) 650 mg PO Q6H PRN PRN Reason: Pain, moderate (4-7) Albuterol/Ipratropium (Duoneb 3 Mg/0.5 Mg (3 Ml) Ud) 3 ml IH Q2H PRN PRN Reason: Shortness of Breath Last Admin: 12/11/18 08:08 Dose: 3 ml Arformoterol Tartrate (Brovana) 15 mcg IH [id number] [facility] Last Admin: 12/11/18 08:07 Dose: 15 mcg Atorvastatin Calcium (Lipitor) 40 mg PO DIN [facility] Last Admin: 12/10/18 17:08 Dose: 40 mg Budesonide (Pulmicort Respules) 0.25 mg IH [id number] [facility] Last Admin: 12/11/18 08:08 Dose: 0.25 mg Cyanocobalamin (Vitamin B12 1000 Mcg Tab) 1,000 mcg PO DAILY [facility] Last Admin: 12/11/18 09:15 Dose: 1,000 mcg Folic Acid (Folic Acid) 1 mg PO DAILY [facility] Last Admin: 12/11/18 09:12 Dose: 1 mg Furosemide (Lasix) 40 mg PO DAILY [facility] Last Admin: 12/11/18 09:13 Dose: 40 mg Hydralazine HCl (Apresoline) 10 mg IVP Q6 PRN PRN Reason: sbp > 160 Last Admin: 12/11/18 05:26 Dose: 10 mg Ceftriaxone Sodium (Rocephin 1 Gram Ivpb) 1 gm in 100 mls @ 100 mls/hr IVPB DAILY [facility]; Protocol Stop: 12/19/18 10:01 Last Admin: 12/11/18 09:15 Dose: 100 mls/hr Vancomycin HCl (Vancomycin 1gm) 1 gm in 250 mls @ 167 mls/hr IVPB Q12H [facility]; Protocol Stop: 12/19/18 05:46 Last Admin: 12/11/18 05:24 Dose: 167 mls/hr Metoprolol Tartrate (Lopressor) 12.5 mg PO 0800,1800 [facility] Last Admin: 12/11/18 09:00 Dose: 12.5 mg Tamsulosin HCl (Flomax) 0.4 mg PO DAILY [facility] Last Admin: 12/11/18 09:11 Dose: 0.4 mg Warfarin Sodium (Coumadin) 5 mg PO 1800 [facility]; Protocol Last Admin: 12/10/18 17:08 Dose: 5 mg Warfarin Sodium (Coumadin) 7.5 mg PO 1800 [facility]; Protocol Stop: 12/11/18 18:01 Results - Vital Signs Recent Vital Signs: Last Vital Signs Temp 98.2 F 12/11/18 00:13 Pulse 110 H 12/11/18 10:00 Resp 20 12/11/18 00:13 BP 168/99 H 12/11/18 09:13 Pulse Ox 99 12/11/18 00:13 - Labs Result Diagrams: 12/11/18 06:45 12/11/18 06:45 Labs: Laboratory Results - last 24 hr 12/11/18 12/11/18 12/11/18 06:45 06:45 06:45 WBC 8.0 RBC 4.00 Hgb 10.3 L Hct 33.5 L MCV 83.8 MCH 25.8 MCHC 30.7 L RDW 16.9 H Plt Count 298 MPV 9.3 Neut % (Auto) 77.4 H Lymph % (Auto) 8.9 L Churchill % (Auto) 13.1 H Eos % (Auto) 0.6 L Baso % (Auto) 0.0 Lymph # (Auto) 0.7 L [place] # (Auto) 1.1 H Eos # (Auto) 0.1 Baso # (Auto) 0.00 Absolute Neuts (auto) 6.18 PT 18.9 H INR 1.67 Sodium 144 Potassium 3.4 L Chloride 107 Carbon Dioxide 24 Anion Gap 17 BUN 16 Creatinine 1.0 Est GFR ( Amer) > 60 Est GFR (Non-Af Amer) > 60 Random Glucose 110 Uric Acid Calcium 9.3 Total Bilirubin 0.7 AST 22 ALT 9 Alkaline Phosphatase 104 Total Protein 7.2 Albumin 3.3 Globulin 3.9 Albumin/Globulin Ratio 0.8 L 12/11/18 11:00 WBC RBC Hgb Hct MCV MCH MCHC RDW Plt Count MPV Neut % (Auto) Lymph % (Auto) Churchill % (Auto) Eos % (Auto) Baso % (Auto) Lymph # (Auto) Churchill # (Auto) Eos # (Auto) Baso # (Auto) Absolute Neuts (auto) PT INR Sodium Potassium Chloride Carbon Dioxide Anion Gap BUN Creatinine Est GFR ( Amer) Est GFR (Non-Af Amer) Random Glucose Uric Acid 7.6 Calcium Total Bilirubin AST ALT Alkaline Phosphatase Total Protein Albumin Globulin Albumin/Globulin Ratio Assessment & Plan - Assessment and Plan (Free Text) Assessment: 83 year old male with history of A fib on coumadin, CHF, COPD, CAD, and HTN who is admiited with cellulitis of the left hand. I was asked to see this patient to discuss advance care plannig. The patient does not have n advanced directive but would like to put something in place. His and son are at bedside. The patient states that he does not want CPR/intubation or dialysis. A POLST directive was explained, all questions answered. POLST DNR/DNI is completed, a copay is placed in the chart Time spent with patient and family in advance care planning, 30 minutes Plan: Goals of care and advance care planning, POLST DNR/DNI. ID recs reviewed, continue Rocephin and Vancomycin. Continue Coumadin, Lopressor, Lasix and Apresoline. Continue Duonebs, Pulmicort
--- NOTE | 2018-12-11 15:04 | CP.PCM.PN ---
<Osmani Escobedo - Last Filed: 12/11/18 15:00> Subjective - Date & Time of Evaluation Date of Evaluation: 12/11/18 Time of Evaluation: 09:45 - Subjective Subjective: Osmani Escobedo PGY1 Medicine Progress Note Patient seen and examined at bedside this morning. No acute events reported overnight. He continues to admit to left arm pain and swelling that is unchanged from yesterday. Offers no new complaints today. Objective - Vital Signs/Intake and Output Vital Signs (last 24 hours): Temp Pulse Resp BP Pulse Ox 98.2 F 110 H 20 168/99 H 99 12/11/18 00:13 12/11/18 10:00 12/11/18 00:13 12/11/18 09:13 12/11/18 00:13 Intake and Output: 12/11/18 12/11/18 06:59 18:59 Intake Total 250 Balance 250 - Medications Medications: Current Medications Acetaminophen (Tylenol 325mg Tab) 650 mg PO Q6H PRN PRN Reason: Pain, moderate (4-7) Albuterol/Ipratropium (Duoneb 3 Mg/0.5 Mg (3 Ml) Ud) 3 ml IH Q2H PRN PRN Reason: Shortness of Breath Last Admin: 12/11/18 08:08 Dose: 3 ml Arformoterol Tartrate (Brovana) 15 mcg IH [id number] [facility] Last Admin: 12/11/18 08:07 Dose: 15 mcg Atorvastatin Calcium (Lipitor) 40 mg PO DIN [facility] Last Admin: 12/10/18 17:08 Dose: 40 mg Budesonide (Pulmicort Respules) 0.25 mg IH [id number] [facility] Last Admin: 12/11/18 08:08 Dose: 0.25 mg Cyanocobalamin (Vitamin B12 1000 Mcg Tab) 1,000 mcg PO DAILY [facility] Last Admin: 12/11/18 09:15 Dose: 1,000 mcg Folic Acid (Folic Acid) 1 mg PO DAILY [facility] Last Admin: 12/11/18 09:12 Dose: 1 mg Furosemide (Lasix) 40 mg PO DAILY [facility] Last Admin: 12/11/18 09:13 Dose: 40 mg Hydralazine HCl (Apresoline) 10 mg IVP Q6 PRN PRN Reason: sbp > 160 Last Admin: 12/11/18 05:26 Dose: 10 mg Ceftriaxone Sodium (Rocephin 1 Gram Ivpb) 1 gm in 100 mls @ 100 mls/hr IVPB DAILY [facility]; Protocol Stop: 12/19/18 10:01 Last Admin: 12/11/18 09:15 Dose: 100 mls/hr Vancomycin HCl (Vancomycin 1gm) 1 gm in 250 mls @ 167 mls/hr IVPB Q12H [facility]; Protocol Stop: 12/19/18 05:46 Last Admin: 12/11/18 05:24 Dose: 167 mls/hr Metoprolol Tartrate (Lopressor) 12.5 mg PO 0800,1800 [facility] Last Admin: 12/11/18 09:00 Dose: 12.5 mg Tamsulosin HCl (Flomax) 0.4 mg PO DAILY [facility] Last Admin: 12/11/18 09:11 Dose: 0.4 mg Warfarin Sodium (Coumadin) 5 mg PO 1800 [facility]; Protocol Last Admin: 12/10/18 17:08 Dose: 5 mg Warfarin Sodium (Coumadin) 7.5 mg PO 1800 [facility]; Protocol Stop: 12/11/18 18:01 - Labs Labs: 12/11/18 06:45 12/11/18 06:45 PT 18.9 SECONDS (9.4-12.5) H 12/11/18 06:45 INR 1.67 12/11/18 06:45 APTT 88.8 Seconds (26.9-38.3) H 12/09/18 11:30 Physical Exam - Constitutional Appears: No Acute Distress - Head Exam Head Exam: ATRAUMATIC, NORMAL INSPECTION - Eye Exam Eye Exam: EOMI Pupil Exam: PERRL - ENT Exam ENT Exam: Mucous Membranes Moist - Neck Exam Neck exam: Positive for: Normal Inspection - Respiratory Exam Respiratory Exam: Clear to Auscultation Bilateral. absent: Accessory Muscle Use, Wheezes, Respiratory Distress - Cardiovascular Exam Cardiovascular Exam: Irregular Rhythm, +S1, +S2. absent: Tachycardia - GI/Abdominal Exam GI & Abdominal Exam: Normal Bowel Sounds, Soft. absent: Firm, Guarding, Tenderness - Extremities Exam Extremities exam: Positive for: pedal pulses present. Negative for: calf tenderness Additional comments: LUE swelling, erythema, tenderness, warmth appreciated. No fluctuance/drainage/sharp demarcation appreciated LLE dry eczematic changes noted with swelling +2 LLE and +1 RLE. - Neurological Exam Neurological exam: Alert, CN II-XII Intact, Oriented x3 - Skin Skin Exam: Dry, Normal Color Assessment and Plan - Assessment and Plan (Free Text) Assessment: This is an 83 year old male with PMH of afib on coumadin, CHF, pre-DM, COPD not on home O2, CAD and HTN presenting to the hospital for 3 week history of left hand swelling, redness, tenderness and warmth. Will continue IV antibiotics for now. Plan: LUE cellulitis -upper and lower extremity doppler's are unremarkable -continue vancomycin and rocephin day 2 -ID on consult, Dr. Mireles -afebrile, no WBC -blood culture shows no growth for 2 days -PT recommends SHIV -left hand xray unremarkable -LUE CT shows no osteomyelitis -tylenol prn for pain -uric acid pending Hypokalemia -repleted, f/u History of afib -home warfarin 5mg held tonight, willl give 7.5mg tonight -given 120mg therapeutic lovenox this morning for subtherapeutic INR Supratherapeutic INR - resolved -INR is 1.73 today frpm 8.81 yesterday -monitor INR History of systolic CHF -no echo on file -BNP elevated on admission -CXR shows no active disease -continue lasix 40mg History of COPD -not in active SOB, symptoms controlled -duonebs, pulmicort, brovana Pre-DM -monitor glucose, not currently on medication History of CAD -continue statin History of HTN -continue lopressor 12.5mg BID, pharmacy does not have equivalent for home bystolic -hydralazine prn PPX -DVT ppx Patient seen and case discussed with attending, Naomy Arreola <Christine Segura R - Last Filed: 12/11/18 17:18> Objective - Vital Signs/Intake and Output Vital Signs (last 24 hours): Temp Pulse Resp BP Pulse Ox 98.2 F 110 H 20 168/99 H 99 12/11/18 00:13 12/11/18 10:00 12/11/18 00:13 12/11/18 09:13 12/11/18 00:13 Intake and Output: 12/11/18 12/11/18 06:59 18:59 Intake Total 250 Balance 250 - Medications Medications: Current Medications Acetaminophen (Tylenol 325mg Tab) 650 mg PO Q6H PRN PRN Reason: Pain, moderate (4-7) Albuterol/Ipratropium (Duoneb 3 Mg/0.5 Mg (3 Ml) Ud) 3 ml IH Q2H PRN PRN Reason: Shortness of Breath Last Admin: 12/11/18 08:08 Dose: 3 ml Arformoterol Tartrate (Brovana) 15 mcg IH [id number] [facility] Last Admin: 12/11/18 08:07 Dose: 15 mcg Atorvastatin Calcium (Lipitor) 40 mg PO DIN [facility] Last Admin: 12/10/18 17:08 Dose: 40 mg Budesonide (Pulmicort Respules) 0.25 mg IH [id number] [facility] Last Admin: 12/11/18 08:08 Dose: 0.25 mg Cyanocobalamin (Vitamin B12 1000 Mcg Tab) 1,000 mcg PO DAILY [facility] Last Admin: 12/11/18 09:15 Dose: 1,000 mcg Folic Acid (Folic Acid) 1 mg PO DAILY [facility] Last Admin: 12/11/18 09:12 Dose: 1 mg Furosemide (Lasix) 40 mg PO DAILY [facility] Last Admin: 12/11/18 09:13 Dose: 40 mg Hydralazine HCl (Apresoline) 10 mg IVP Q6 PRN PRN Reason: sbp > 160 Last Admin: 12/11/18 05:26 Dose: 10 mg Ceftriaxone Sodium (Rocephin 1 Gram Ivpb) 1 gm in 100 mls @ 100 mls/hr IVPB DAILY [facility]; Protocol Stop: 12/19/18 10:01 Last Admin: 12/11/18 09:15 Dose: 100 mls/hr Vancomycin HCl (Vancomycin 1gm) 1 gm in 250 mls @ 167 mls/hr IVPB Q12H [facility]; Protocol Stop: 12/19/18 05:46 Last Admin: 12/11/18 05:24 Dose: 167 mls/hr Metoprolol Tartrate (Lopressor) 25 mg PO 0800,1800 [facility] Tamsulosin HCl (Flomax) 0.4 mg PO DAILY [facility] Last Admin: 12/11/18 09:11 Dose: 0.4 mg Warfarin Sodium (Coumadin) 5 mg PO 1800 [facility]; Protocol Last Admin: 12/10/18 17:08 Dose: 5 mg Warfarin Sodium (Coumadin) 7.5 mg PO 1800 [facility]; Protocol Stop: 12/11/18 18:01 - Labs Labs: 12/11/18 06:45 12/11/18 06:45 PT 18.9 SECONDS (9.4-12.5) H 12/11/18 06:45 INR 1.67 12/11/18 06:45 APTT 88.8 Seconds (26.9-38.3) H 12/09/18 11:30 Attending/Attestation - Attestation I have personally seen and examined this patient.: Yes I have fully participated in the care of the patient.: Yes I have reviewed all pertinent clinical information, including history, physical exam and plan: Yes Notes (Text): Patient seen and examined by me with resident at approximately 10:40AM on 12/11/18. Case including HPI, physical exam, and assessment and plan discussed with resident. Agree with above with following additions/corrections. Patient is an 83-year-old male with past medical history significant for atrial fibrillation on Coumadin, chronic systolic CHF, prediabetes not on medications at home, COPD, coronary artery disease, hypertension, and hyperlipidemia that presented to the emergency room with left hand edema, erythema, and pain. Patient states that he is feeling ok. States the edema in his left hand seems worse today. States he is still having intermittent pain in his left hand. He denies any chest pain or palpitations. Shortness of breath with ambulation is chronic. No headaches or dizziness. No fevers or chills. No nausea, vomiting, or abdominal pain. No dysuria. Physical exam: General: Awake and alert sitting up in bed in no acute distress. HEENT: Normocephalic, atraumatic. Extraocular muscles intact, pupils equal and reactive, no scleral icterus. Oropharynx is pink and moist. No pharyngeal erythema or exudate appreciated. Neck is supple. Cardiovascular: Irregularly irregular rhythm. No murmurs, rubs, or gallops appreciated Pulmonary: Normal respiratory effort. No rhonchi, rales, or wheezing appreciated. Gastrointestinal: Soft, nondistended. Nontender. Positive bowel sounds all 4 quadrants. No guarding. Musculoskeletal: Moves all extremities. No calf tenderness. Bilateral lower extremity pitting edema (chronic per patient). Left hand with edema, improved erythema, warmth, and tenderness with palpation. Central nervous system: AAOx3. CN 2-12 grossly intact Dermatologic: Skin warm and dry. Left lower extremity with chronic venous sta sis color changes. Assessment and plan: Patient is an 83-year-old male with past medical history significant for atrial fibrillation on Coumadin, chronic systolic CHF, prediabetes not on medications at home, COPD, coronary artery disease, hypertension, and hyperlipidemia that presented to the emergency room with left hand edema, erythema, and pain. 1. Left hand cellulitis. ID following, recommendations appreciated. Continue Rocephin and Vancomycin. LUE CT per radiologist showed no evidence of os teomyelitis, subcutaneous edema is seen over the dorsum of the hand, Cystic degenerative changes are seen in the 1st carpal row. Patient afebrile. No leukocytosis. ESR elevated 110, CRP elevated at 83.90. Left wrist x-ray per radiologist showed normal left wrist radiographs. Bilateral upper extremity venous Dopplers negative for DVT. 2. Supratherapeutic INR. Resolved. Continue to monitor INR. 3. Chronic atrial fibrillation. INR 1.67. Will give coumadin 7.5mg x 1 dose tonight. Continue metoprolol here. Patient takes bystolic at home. 4. COPD. Not in acute exacerbation. Continue Brovana and Pulmicort. Continue nebulizer treatments as needed. 5. Chronic systolic CHF. Compensated. Continue home Lasix. Continue metoprolol here. Patient takes bystolic at home. 6. Hypertension. Metoprolol dose increased, continue to monitor and adjust medications as needed. 7. Hyperlipidemia. Patient takes Crestor at home. Continue Lipitor here 8. BPH. Continue Flomax. 9. DVT prophylaxis. Patient on coumadin. 10. Patient is a full code Case was discussed in detail with the patient and patient's at bedside regarding current diagnosis and treatment plan. All questions answered.
[2018-12-12] MEDS: Vancomycin 1gm in NS 250ml 1 GM/250 ML BAG IVPB SCH (04:52)
[2018-12-12 07:12] LABS: INR 2.68; PROTHROMBIN TIME 30.3 SECONDS (9.4-12.5)
[2018-12-12 07:17] LABS: ALB/GLOB RATIO 0.8 (1.1-1.8); ALT/SGPT 16 U/L (7-56); AST/SGOT 16 U/L (17-59); BLOOD UREA NITROGEN 17 mg/dL (7-21); CALCIUM 9.2 mg/dL (8.4-10.5); GFR NON-AFRICAN AMERICAN > 60
[2018-12-12] MEDS: Arformoterol 15 mcg/2 ml Inh Sol IH SCH (07:57)
[2018-12-12] MEDS: Budesonide 0.25 mg/2 ml Inhal Susp UD IH SCH (07:58)
[2018-12-12 08:17] LABS: EOS % 0.3 % (1.5-5.0); HEMOGLOBIN 9.8 g/dL (14.0-18.0); LYMPH # 1.3 (1.2-3.4); LYMPH % 13.1 % (22.0-35.0); MEAN CELL VOLUME 83.8 fl (80.0-105.0); MEAN CORPUSCULAR HEMOGLOBIN 25.7 pg (25.0-35.0); MEAN CORPUSCULAR HGB CONC 30.6 g/dl (31.0-37.0); MEAN PLATELET VOLUME 9.3 fl (7.0-11.0); MONO # 0.7 (0.1-0.6); MONO % 6.5 % (1.0-6.0); RBC 3.82 10^6/uL (3.5-6.1); RED CELL DISTRIBUTION WIDTH 17.1 % (11.5-14.5)
[2018-12-12 08:26] VITALS: PULSE 102
[2018-12-12] MEDS: cefTRIAXone 1 gm 1 GM/100 ML BAG IVPB SCH (09:55)
[2018-12-12 09:57] VITALS: BP 154/83
--- NOTE | 2018-12-12 15:12 | CP.PCM.DIS ---
Provider - Provider Date of Admission: 12/09/18 12:54 Attending physician: Christine Segura DO Primary care physician: Vladimir Hughes MD Consults: 12/09/18 14:52 Infectious Disease Consult Routine Comment: Consulting Provider: Juan Han Consulting Physician: Juan Han Reason for Consult: ?cellulitis LUE 12/11/18 13:05 Palliative Care Consult Routine Comment: Consulting Provider: Linda Rhodes Physician Instructions: Reason For Exam: Adv. directive Time Spent in preparation of Discharge (in minutes): 35 Hospital Course - Lab Results Lab Results: Micro Results 12/09/18 12:30 Blood Blood Culture - Preliminary NO GROWTH AFTER 3 DAYS 12/09/18 11:30 Blood Blood Culture - Preliminary NO GROWTH AFTER 3 DAYS Most Recent Lab Values WBC 10.0 10^3/uL (4.5-11.0) D 12/12/18 06:00 RBC 3.82 10^6/uL (3.5-6.1) 12/12/18 06:00 Hgb 9.8 g/dL (14.0-18.0) L 12/12/18 06:00 Hct 32.0 % (42.0-52.0) L 12/12/18 06:00 MCV 83.8 fl (80.0-105.0) 12/12/18 06:00 MCH 25.7 pg (25.0-35.0) 12/12/18 06:00 MCHC 30.6 g/dl (31.0-37.0) L 12/12/18 06:00 RDW 17.1 % (11.5-14.5) H 12/12/18 06:00 Plt Count 275 10^3/uL (120.0-450.0) 12/12/18 06:00 MPV 9.3 fl (7.0-11.0) 12/12/18 06:00 Neut % (Auto) 80.1 % (50.0-68.0) H 12/12/18 06:00 Lymph % (Auto) 13.1 % (22.0-35.0) L 12/12/18 06:00 [place] % (Auto) 6.5 % (1.0-6.0) H 12/12/18 06:00 Eos % (Auto) 0.3 % (1.5-5.0) L 12/12/18 06:00 Baso % (Auto) 0.0 % (0.0-3.0) 12/12/18 06:00 Lymph # (Auto) 1.3 (1.2-3.4) 12/12/18 06:00 [place] # (Auto) 0.7 (0.1-0.6) H 12/12/18 06:00 Eos # (Auto) 0.0 (0.0-0.7) 12/12/18 06:00 Baso # (Auto) 0.00 K/mm3 (0.0-2.0) 12/12/18 06:00 Absolute Neuts (auto) 7.97 (1.4-6.5) H 12/12/18 06:00 ESR 110 mm/hr (0.00-15.0) H 12/10/18 06:00 PT 30.3 SECONDS (9.4-12.5) H 12/12/18 06:00 INR 2.68 12/12/18 06:00 APTT 88.8 Seconds (26.9-38.3) H 12/09/18 11:30 Sodium 143 mmol/L (132-148) 12/12/18 06:00 Potassium 4.0 mmol/L (3.6-5.0) 12/12/18 06:00 Chloride 107 mmol/L (98-107) 12/12/18 06:00 Carbon Dioxide 28 mmol/L (21-33) 12/12/18 06:00 Anion Gap 13 (10-20) 12/12/18 06:00 BUN 17 mg/dL (7-21) 12/12/18 06:00 Creatinine 1.1 mg/dl (0.8-1.5) 12/12/18 06:00 Est GFR ( Amer) > 60 12/12/18 06:00 Est GFR (Non-Af Amer) > 60 12/12/18 06:00 Random Glucose 113 mg/dL (70-110) H 12/12/18 06:00 Uric Acid 7.6 mg/dL (3.5-8.5) 12/11/18 11:00 Calcium 9.2 mg/dL (8.4-10.5) 12/12/18 06:00 Phosphorus 4.0 mg/dL (2.5-4.5) 12/10/18 06:00 Magnesium 1.9 mg/dL (1.7-2.2) 12/10/18 06:00 Total Bilirubin 0.5 mg/dL (0.2-1.3) 12/12/18 06:00 AST 16 U/L (17-59) L D 12/12/18 06:00 ALT 16 U/L (7-56) 12/12/18 06:00 Alkaline Phosphatase 90 U/L (38-126) 12/12/18 06:00 Troponin I 0.01 ng/mL 12/09/18 11:30 C-Reactive Protein 83.90 mg/L (0.0-9.9) H 12/10/18 06:00 NT-Pro-B Natriuret Pep 4930 pg/mL (0-450) H 12/09/18 11:30 Total Protein 6.7 g/dL (5.8-8.3) 12/12/18 06:00 Albumin 3.0 g/dL (3.0-4.8) 12/12/18 06:00 Globulin 3.7 gm/dL 12/12/18 06:00 Albumin/Globulin Ratio 0.8 (1.1-1.8) L 12/12/18 06:00 Urine Color Yellow (YELLOW) 12/09/18 16:59 Urine Appearance Clear (CLEAR) 12/09/18 16:59 Urine pH 6.0 (4.7-8.0) 12/09/18 16:59 Ur Specific [place] 1.020 (1.005-1.035) 12/09/18 16:59 Urine Protein 30 mg/dL (<30 mg/dL) H 12/09/18 16:59 Urine Glucose (UA) Negative mg/dL (NEGATIVE) 12/09/18 16:59 Urine Ketones Negative mg/dL (NEGATIVE) 12/09/18 16:59 Urine Blood Large (NEGATIVE) H 12/09/18 16:59 Urine Nitrate Negative (NEGATIVE) 12/09/18 16:59 Urine Bilirubin Negative (NEGATIVE) 12/09/18 16:59 Urine Urobilinogen 0.2 E.U./dL (<1 E.U./dL) 12/09/18 16:59 Ur Leukocyte Esterase Negative [place]/uL (NEGATIVE) 12/09/18 16:59 Urine RBC Tntc /hpf (0-2) H 12/09/18 16:59 Urine WBC 0 - 2 /hpf (0-6) 12/09/18 16:59 Ur Epithelial Cells 0 - 2 /hpf (0-5) 12/09/18 16:59 Urine Bacteria Neg /hpf (NONE) 12/09/18 16:59 Physical Exam - Constitutional Appears: No Acute Distress - Head Exam Head Exam: ATRAUMATIC, NORMAL INSPECTION - Eye Exam Eye Exam: EOMI Pupil Exam: PERRL - ENT Exam ENT Exam: Mucous Membranes Moist - Neck Exam Neck exam: Positive for: Normal Inspection - Respiratory Exam Respiratory Exam: Clear to Auscultation Bilateral. absent: Accessory Muscle Use, Wheezes, Respiratory Distress - Cardiovascular Exam Cardiovascular Exam: Irregular Rhythm, +S1, +S2. absent: Tachycardia - GI/Abdominal Exam GI & Abdominal Exam: Normal Bowel Sounds, Soft. absent: Firm, Guarding, Tenderness - Extremities Exam Extremities exam: Positive for: pedal pulses present. Negative for: calf tenderness Additional comments: LUE swelling, erythema, tenderness, warmth appreciated. No fluctuance/drainage/sharp demarcation appreciated LLE dry eczematic changes noted with swelling +2 LLE and +1 RLE. - Neurological Exam Neurological exam: Alert, CN II-XII Intact, Oriented x3 - Skin Skin Exam: Dry, Normal Color - Hospital Course Hospital Course: Upon admission, 83 year old male with PMH of afib on coumadin, CHF, pre-DM, COPD not on home O2, CAD and HTN presenting to the hospital for 3 week history of left hand swelling, redness, tenderness and warmth. Patient states he has similar intermittent symptoms in both wrists that extend into the arm but the left wrist complaints have worsened throughout the week. He has a home health nurse who works with Dr. Cortez that recommended hot and cold compresses with limited improvement in symptoms. He states symptoms worsen with use of walker and with use of rails when climbing up stairs. He denies any recent change in medication and has been on a stable dose of warfarin for years and denies recent change in diet. During hospital course, upper and lower extremity doppler's are unremarkable, patient was afebrile and no WBC count noted. Patient started on vancomycin and rocephin and blood cultures did not show growth for 3 days. Left hand xray unremarkable and LUE CT shows no osteomyelitis. Uric acid level was normal. Patient initially noted to have supratherapeutic INR and was given vitamin K with resolution and home dose of warfarin was resumed. CXR did not any acute process. Patient started on duonebs, pulmicort and borvana for his history of COPD. Patient was started on lopressor 12.5mg BID as a substitute for his bystolic which the hospital pharmacy did not have. Patient's LUE swelling improved during hospital course and patient given 5 day course of antibiotics upon discharge as per ID reccomendations. All of patient's questions were answered to satisfaction and patient agreed with discharge today. Discharge Plan - Discharge Medications Prescriptions: Cefpodoxime [Vantin] 200 mg PO BID 10 Days #10 tab Doxycycline Hyclate 100 mg PO BID 10 Days #10 capsule - Follow Up Plan Condition: GOOD Disposition: HOME/ ROUTINE Instructions: Cellulitis (Skin Infection), Adult (DC) Additional Instructions: Please follow up with your primary care doctor, Dr. Cortez within 3-5 days of discharge. Please continue your home medications as previously taken. As per our discussion, you do not need any refills at this time. Please obtain refills from your primary care doctor, Dr. Cortez. Please check your INR with Dr. Cortez. As per our discussion, please obtain a ladder operator of your choosing for possible arthritis. You will be taking two antibiotics twice daily for a total of 5 days: doxycycline 100mg twice daily and vantin 200mg twice daily. Please return to the ED for any new or worsening symptoms. Referrals: Vladimir Hughes MD [Primary Care Provider] -
--- NOTE | 2018-12-12 15:12 | CP.PCM.PN ---
<Sagar Severino - Last Filed: 12/12/18 15:10> Subjective - Date & Time of Evaluation Date of Evaluation: 12/12/18 Time of Evaluation: 09:00 - Subjective Subjective: Sagar Severino D.O. PGY-3, Internal Medicine Resident, Infectious Disease Progress Note 83 year old male with a PMH of Afib on coumadin, heart failue, pre-DM, COPD, CAD, and HTN who presented [facility] for 3 week history of left hand swelling, redne ss, tenderness and warmth. Infectious disease consultation was requested for concern of cellulitis. Patient was seen and examined at bedside. Hand doing much better. Somewhat tender but not like before. Eager to go home. Objective - Vital Signs/Intake and Output Vital Signs (last 24 hours): Temp Pulse Resp BP Pulse Ox 98.2 F 102 H 20 154/83 H 99 12/11/18 00:13 12/12/18 10:00 12/11/18 00:13 12/12/18 09:53 12/11/18 00:13 - Medications Medications: Current Medications Acetaminophen (Tylenol 325mg Tab) 650 mg PO Q6H PRN PRN Reason: Pain, moderate (4-7) Albuterol/Ipratropium (Duoneb 3 Mg/0.5 Mg (3 Ml) Ud) 3 ml IH Q2H PRN PRN Reason: Shortness of Breath Last Admin: 12/11/18 19:23 Dose: 3 ml Arformoterol Tartrate (Brovana) 15 mcg IH [id number] [facility] Last Admin: 12/12/18 07:57 Dose: 15 mcg Atorvastatin Calcium (Lipitor) 40 mg PO DIN [facility] Last Admin: 12/11/18 17:43 Dose: 40 mg Budesonide (Pulmicort Respules) 0.25 mg IH [id number] [facility] Last Admin: 12/12/18 07:58 Dose: 0.25 mg Cyanocobalamin (Vitamin B12 1000 Mcg Tab) 1,000 mcg PO DAILY [facility] Last Admin: 12/12/18 09:53 Dose: 1,000 mcg Folic Acid (Folic Acid) 1 mg PO DAILY [facility] Last Admin: 12/12/18 09:54 Dose: 1 mg Furosemide (Lasix) 40 mg PO DAILY [facility] Last Admin: 12/12/18 09:53 Dose: 40 mg Hydralazine HCl (Apresoline) 10 mg IVP Q6 PRN PRN Reason: sbp > 160 Last Admin: 12/11/18 17:41 Dose: 10 mg Ceftriaxone Sodium (Rocephin 1 Gram Ivpb) 1 gm in 100 mls @ 100 mls/hr IVPB DAILY [facility]; Protocol Stop: 12/19/18 10:01 Last Admin: 12/12/18 09:55 Dose: 100 mls/hr Vancomycin HCl (Vancomycin 1gm) 1 gm in 250 mls @ 167 mls/hr IVPB Q12H [facility]; Protocol Stop: 12/19/18 05:46 Last Admin: 12/12/18 04:52 Dose: 167 mls/hr Metoprolol Tartrate (Lopressor) 25 mg PO 0800,1800 [facility] Last Admin: 12/12/18 08:24 Dose: 25 mg Tamsulosin HCl (Flomax) 0.4 mg PO DAILY [facility] Last Admin: 12/12/18 09:54 Dose: 0.4 mg Warfarin Sodium (Coumadin) 5 mg PO 1800 [facility]; Protocol Last Admin: 12/10/18 17:08 Dose: 5 mg - Labs Labs: 12/12/18 06:00 12/12/18 06:00 PT 30.3 SECONDS (9.4-12.5) H 12/12/18 06:00 INR 2.68 12/12/18 06:00 APTT 88.8 Seconds (26.9-38.3) H 12/09/18 11:30 - Constitutional Appears: Non-toxic, No Acute Distress - Head Exam Head Exam: ATRAUMATIC, NORMOCEPHALIC - Eye Exam Eye Exam: EOMI. absent: Scleral icterus - ENT Exam ENT Exam: Mucous Membranes Moist - Neck Exam Neck exam: Positive for: Normal Inspection - Respiratory Exam Respiratory Exam: absent: Rales, Rhonchi, Wheezes - Cardiovascular Exam Cardiovascular Exam: +S1, +S2. absent: Gallop, Rubs - GI/Abdominal Exam GI & Abdominal Exam: Normal Bowel Sounds, Soft. absent: Distended, Tenderness - Extremities Exam Additional comments: less swollen and erythematous hand - Neurological Exam Neurological exam: Alert, Oriented x4 - Skin Skin Exam: Dry, Warm Assessment and Plan - Assessment and Plan (Free Text) Assessment: 83 year old male with a PMH of Afib on coumadin, heart failue, pre-DM, COPD, CAD, and HTN who presented [facility] for 3 week history of left hand swelling, redness, tenderness and warmth. Infectious disease consultation was requested for concern of cellulitis. Plan: Left hand cellulitis Afib on coumadin HF Pre-DM COPD CAD HTN Afebrile No leukocytosis BCx negative 2/2 day 3 Continue on ceftriaxone/vancomycin day 3 Upon D/C can given 5 days of PO vantin and doxycycline Discussed with primary team We will follow with you Patient was seen and examined and case to be discussed with attending physician Thank you for the pleasure of participating in the care of this patient <GuilleJuanmonique Vanessa - Last Filed: 12/12/18 23:39> Objective - Vital Signs/Intake and Output Vital Signs (last 24 hours): Temp Pulse Resp BP Pulse Ox 98.2 F 102 H 20 154/83 H 99 12/11/18 00:13 12/12/18 10:00 12/11/18 00:13 12/12/18 09:53 12/11/18 00:13 - Labs Labs: 12/12/18 06:00 12/12/18 06:00 PT 30.3 SECONDS (9.4-12.5) H 12/12/18 06:00 INR 2.68 12/12/18 06:00 APTT 88.8 Seconds (26.9-38.3) H 12/09/18 11:30 Assessment and Plan - Assessment and Plan (Free Text) Plan: Infectious Diseases Attending Physician Attestation Patient seen and examined at bedside, discussed with medical director. I have reviewed the HPI, ROS, physical examination findings. I have also reviewed the pertinent labs and diagnostic imaging. I have fully participiated in the care of this patient. I agree with the above findings, assessment, plan.
== END 2018-12-12 17:15 | disposition home health service (06) | DRG 603 ==
LOC: ED 10:28 → ERH 12:54 → 3RSO 15:51
PROVIDERS: ADMIT Internal Medicine; ATTEND Hospitalist
DX: L03.114 Cellulitis of left upper limb (principal); I50.22 Chronic systolic (congestive) heart failure; I48.2 Chronic atrial fibrillation; J44.9 Chronic obstructive pulmonary disease, unspecified; I25.10 Atherosclerotic heart disease of native coronary artery without angina pectoris; I11.0 Hypertensive heart disease with heart failure; N40.0 Benign prostatic hyperplasia without lower urinary tract symptoms; E11.9 Type 2 diabetes mellitus without complications; R79.1 Abnormal coagulation profile; Z79.01 Long term (current) use of anticoagulants; Z87.891 Personal history of nicotine dependence; E87.6 Hypokalemia; E78.00 Pure hypercholesterolemia, unspecified; E78.5 Hyperlipidemia, unspecified; H91.90 Unspecified hearing loss, unspecified ear; I44.7 Left bundle-branch block, unspecified; I45.81 Long QT syndrome; Z66 Do not resuscitate; Z80.52 Family history of malignant neoplasm of bladder